=== PATIENT | female | born 1995 | race Caucasian/White ===

== ENCOUNTER 2023-10-02 09:11 | Emergency (ER) | payer BC, SELFPAY ==
[2023-10-02] VITALS (8 sets, daily range): BP systolic 122–167; BP diastolic 75–101; PULSE 67–85; RESP 12–18; TEMP 36.3–36.7; O2SAT 96–100; BMI 63.7
--- NOTE | 2023-10-02 09:21 | HMH.EDGENADL ---
Discharge Plan Disposition Patient Disposition: Home, Self-Care Condition: Good Prescriptions Prescriptions: New ondansetron 4 mg tablet,disintegrating 4 mg PO Q6H PRN (Reason: nausea and vomiting) 4 Days Qty: 16 0RF No Action dextroamphetamine-amphetamine 20 mg capsule,extended release 24hr 40 mg PO DAILY Wegovy 1.7 mg/0.75 mL pen injector 1.7 mg SQ WEEKLY Referrals Follow up/Referrals: Provider,Referral, [Primary Care Provider] - See instructions Clinical Impressions Clinical Impression: Abdominal pain, RLQ, Mesenteric adenitis Instructions Patient Instructions: DI for Acute Abdominal Pain Discharge ED Provider: Galo Harris General Adult HPI General Chief complaint: Abdominal Pain Stated complaint: Abd Pain Time Seen by Provider: 10/02/23 09:19 History of Present Illness HPI narrative: 27-year-old female with past medical history significant for PCOS and ADHD, presents today for evaluation concerning right lower quadrant abdominal pain which she states has been present since about 3 AM this morning. Pain has been constant since onset and radiates to the right upper quadrant. She reports nausea without emesis. Also reports constipation which is usual for her. She currently takes Wegovy and has been doing so for the past 4 months. Last menstrual period was about 2 months ago. She denies any chest pain, shortness of breath, fevers, chills, diarrhea or any other associated symptoms at this time. Related Data Home Medications Medication Instructions Recorded Confirmed dextroamphetamine-amphetamine ER 40 mg PO DAILY 10/02/23 10/02/23 20 mg 24hr capsule,extend release semaglutide (weight loss) 1.7 1.7 mg SQ WEEKLY 10/02/23 10/02/23 mg/0.75 mL subcutaneous pen injector (Wegovy) Previous Rx's Medication Instructions Recorded ondansetron 4 mg disintegrating 4 mg PO Q6H PRN nausea and 10/02/23 tablet vomiting 4 days #16 tabs Allergies Allergy/AdvReac Type Severity Reaction Status Date / Time No Known Allergies Allergy Verified 10/02/23 09:37 [facility] Disclaimer: The information contained in this section may have been updated after the patient was seen, as this information can be updated by other users. Social History Smoking Status: Never smoker alcohol intake: never current occupational status: employed Travel in the last 8 weeks: None ROS Obtained: Yes All systems reviewed & no additional complaints except as documented Physical Exam General General appearance: alert, in no apparent distress and obese Head Head exam: atraumatic and normocephalic Eye Eye exam: Present normal appearance, PERRL and EOMI ENT ENT exam: Present normal oropharynx and mucous membranes moist Neck Neck exam: Present full ROM; Absent meningismus Respiratory Respiratory exam: Absent respiratory distress, wheezes, stridor or accessory muscle use Cardiovascular Cardiovascular exam: Present normal rhythm Abdominal Exam Abdominal exam: Present soft and tenderness; Absent distention, guarding, rebound or rigidity Abdominal tenderness: Present RUQ and RLQ Neurological Exam Neurological exam: Present alert, oriented X3 and CN II-XII intact; Absent motor sensory deficit Psychiatric Psychiatric exam: Present normal affect and normal mood Skin Skin exam: Present warm and dry Medical Decision Making Medical Records Medical records reviewed: Yes I reviewed the patient's medical records. Drew Inquiry Pt receiving controlled substance: No Drew was queried for this patient: No Vital Signs: 10/02/23 09:33 10/02/23 09:35 10/02/23 10:04 Temperature 97.4 F L Temperature Source Oral Pulse Rate 75 85 Pulse Rate [Right Radial] 83 Respiratory Rate 17 15 12 Blood Pressure 167/99 H 127/78 Blood Pressure [Right Arm] 144/95 H Blood Pressure Mean [Right Arm] 111 Blood Pressure Source [Right Arm] Automatic Cuff Blood Pressure Position [Right Arm] Sitting 02 Sat by Pulse Oximetry 100 99 100 Oxygen Delivery Method Room Air Room Air Room Air 10/02/23 10:30 10/02/23 11:01 10/02/23 11:30 Temperature Temperature Source Pulse Rate 74 78 68 Pulse Rate [Right Radial] Respiratory Rate 18 16 15 Blood Pressure 128/91 H 122/75 128/77 Blood Pressure [Right Arm] Blood Pressure Mean [Right Arm] Blood Pressure Source [Right Arm] Blood Pressure Position [Right Arm] 02 Sat by Pulse Oximetry 98 97 96 Oxygen Delivery Method Room Air Room Air Room Air 10/02/23 12:01 Temperature Temperature Source Pulse Rate 67 Pulse Rate [Right Radial] Respiratory Rate 16 Blood Pressure 143/88 H Blood Pressure [Right Arm] Blood Pressure Mean [Right Arm] Blood Pressure Source [Right Arm] Blood Pressure Position [Right Arm] 02 Sat by Pulse Oximetry 97 Oxygen Delivery Method Room Air Lab Data Lab Results 10/02/23 09:14: Urine Color Yellow, Urine Appearance Clear, Urine pH 6.5, Ur Specific [place] 1.020, Urine Protein Negative, Urine Glucose (UA) Negative, Urine Ketones Negative, Urine Blood Negative, Urine Nitrate Negative, Urine Bilirubin Negative, Urine Urobilinogen 0.2, Ur Leukocyte Esterase Negative, Urine RBC Occasional, Urine WBC 3-5, Ur Squamous Epith Cells 5-10, Urine Bacteria 1+ 10/02/23 09:30: WBC 10.4, RBC 5.10, Hgb 13.8, Hct 43.3, MCV 84.8, MCH 27.1, MCHC 31.9, RDW 15.0, Plt Count 309, MPV 8.3, Neut % (Auto) 63.2, Lymph % (Auto) 25.8, [place] % (Auto) 4.0, Eos % (Auto) 6.1, Baso % (Auto) 0.9, Neut # (Auto) 6.6, Lymph # (Auto) 2.7, [place] # (Auto) 0.4, Eos # (Auto) 0.6 H, Baso # (Auto) 0.1, Sodium 140, Potassium 4.1, Chloride 105, Carbon Dioxide 30, Anion Gap 9.1, BUN 10, Creatinine 0.90, Estimated Creat Clear 86, Estimated GFR 74, Est GFR ( Amer) 90, Glucose 100, Calcium 9.1, Total Bilirubin 0.3, AST 34, ALT 36, Alkaline Phosphatase 88, Total Protein 8.5 H, Albumin 4.4, Globulin 4.1 H, Albumin/Globulin Ratio 1.1, Lipase 158, Serum HCG, Qual Negative 10/02/23 10:03: Lactate 0.8 10/02/23 09:30 10/02/23 09:30 Orders (Tests/Meds): ED MEDICATIONS Generic Name Dose Route Start Last Admin Trade Name Freq PRN Reason Stop Dose Admin Sodium Chloride 10 ml 10/02/23 10:20 10/02/23 10:21 Sodium Chloride 0.9% 10ml Syr (Rad Only) IV 11/01/23 10:19 10 ml NEEDED PRN Administration Maintain IV Site Discontinued Medications Generic Name Dose Route Start Last Admin Trade Name Freq PRN Reason Stop Dose Admin Iopamidol 75 ml 10/02/23 10:20 10/02/23 10:20 Iopamidol-370 (76%);100ml Bottle IV 10/02/23 10:21 75 ml ONCE ONE Administration Morphine Sulfate 4 mg 10/02/23 09:25 10/02/23 09:38 Morphine 4mg/Ml Syringe IV 10/02/23 09:26 4 mg ONCE ONE Administration Ondansetron HCl 4 mg 10/02/23 09:25 10/02/23 09:37 Ondansetron 4mg/2ml Vial IV 10/02/23 09:26 4 mg ONCE ONE Administration ORDERS Category Date Time Status CT abdomen pelvis w con Stat Cat Scan 10/02/23 09:25 Completed US transvaginal Stat Exams 10/02/23 09:28 Completed CBC w/Auto Diff [Complete Blood Count Auto Diff] Stat Lab 10/02/23 09:30 Completed CMP [Comprehensive Metabolic Panel] Stat Lab 10/02/23 09:30 Completed HCG Qualitative, Serum Stat Lab 10/02/23 09:30 Completed Lactic Acid Stat Lab 10/02/23 10:03 Completed Lipase Stat Lab 10/02/23 09:30 Completed UA [Urinalysis and Microscopic] Stat Lab 10/02/23 09:14 Completed Medical Decision Narrative: 27-year-old female with past medical history significant for PCOS and ADHD, presents today for evaluation concerning right lower quadrant abdominal pain which she states has been present since about 3 AM this morning. Pain has been constant since onset and radiates to the right upper quadrant. She reports nausea without emesis. Also reports constipation which is usual for her. She currently takes Wegovy and has been doing so for the past 4 months. Last menstrual period was about 2 months ago. On assessment she was hemodynamically stable and in no acute distress. Afebrile. Chest was clear to station bilaterally. Abdomen soft nondistended and was tender in the right lower quadrant. No rebound or guarding. Other physical exam findings unremarkable. Differential diagnoses include not limited to appendicitis, ovarian torsion, ruptured cyst, , constipation, among others. Patient's labs today have been nonactionable. No signs of UTI on urinalysis. Negative screen. Transvaginal ultrasound noted that both ovaries were difficult to visualize but appeared to be normal. Blood flow was noted to both ovaries and there was no fluid in the cul-de-sac. CT abdomen pelvis did show small right lower quadrant lymph nodes which could be seen in mesenteric adenitis. No other acute findings. On reassessment she remains medically stable and in no distress. Stated her pain was improved. Discussed ED workup and results as well as current plan to discharge with supportive care measures including NSAIDs over the next few days. She verbalized understanding and agreement with plan. Provided with return ED precautions and instructions concerning PCP follow-up. Subsequently discharged. Critical Care Critical Care Time Critical Care Time: No
--- NOTE | 2023-10-02 09:22 | PC.NURSE ---
dr chappell at bedside
--- NOTE | 2023-10-02 09:25 | CT_ITS ---
FINAL REPORT TECHNIQUE: Thin section axial images are obtained through the abdomen and pelvis after intravenous contrast. Reconstruction images were obtained from the axial data. Exam was performed using dose reduction techniques. CLINICAL HISTORY: RLQ pain COMPARISON: None FINDINGS: Exam quality is limited secondary to patient body habitus. LUNG BASES: Lung bases are clear. Heart size is normal. LIVER: Homogeneous. No focal lesion. GALLBLADDER/BILIARY SYSTEM: Gallbladder is present. No gallstones. No biliary dilatation. SPLEEN: Unremarkable. PANCREAS: Unremarkable. ADRENALS: Unremarkable. SYSTEM: No hydronephrosis, renal mass, or renal stone. Unremarkable urinary bladder. Uterus is unremarkable for age. GI TRACT: No small bowel obstruction or dilatation. Appendix not seen but no secondary signs of appendicitis. No acute colon abnormality. LYMPH NODES/RETROPERITONEUM/MESENTERY: Small right lower quadrant lymph nodes which could be seen which mesenteric adenitis. No abdominal aortic aneurysm. OTHER: No ascites. Remaining soft tissues without acute abnormality. BONES: No acute osseous abnormality. IMPRESSION: Small right lower quadrant lymph nodes which can be seen with mesenteric adenitis. Otherwise, no acute abnormalities. Reviewed, Interpreted and Dictated by Miya Rob MD Transcribed by Lidya Castanon Authenticated and [facility]
--- NOTE | 2023-10-02 09:28 | US_ITS ---
PROCEDURE: US TRANSVAGINAL CLINICAL INDICATION: RLQ pain, hx PCOS COMPARISON: No exams were available for comparison FINDINGS: Transvaginal sonographic images of the pelvis were obtained. UTERUS: 8.1cm x 4.5 cmx 3.7 cm anteverted with a combined endometrial thickness of 7.2mm. There is a small amount of fluid in the cervical canal. LEFT OVARY: 1.7 cmx1.3cmx1.3cm with a volume of 1.5ml. RIGHT OVARY: 2.5cmx 2.4cmx1.9 cm with a volume of 5.7ml. Both ovaries are seen and appear normal. They are difficult to visualize. Doppler flow to both ovaries are seen. There is no fluid in the cul-de-sac. IMPRESSION: 1. Anteverted uterus normal in shape and size. The endometrium appears normal and measures 7.2 mm. 2. Both ovaries are difficult to visualize but appear normal. There is blood flow to both ovaries. 3. No fluid in the cul-de-sac. Dictated by: Julio Campos MD 10/02/2023 10:39 Julio Campos MD in [place] 10/02/2023 10:39
[2023-10-02 09:30] LABS: Microscopic, Urine URINE MICROSCOPIC (MICROSCOPIC)
--- NOTE | 2023-10-02 09:30 | PC.NURSE ---
US called for transvag
[2023-10-02 09:37] LABS: Appearance,Urine CLEAR (Clear); Bilirubin,Urine Negative (Negative); Blood, Urine Negative (Negative); Color,Urine YELLOW (Yellow); Glucose,Urine (UA) Negative (Negative); Ketones,Urine Negative (Negative); Leukocyte Esterase,Urine Negative (Negative); Nitrate,Urine Negative (Negative); PH,Urine 6.5 (5.0-8.5); Protein,Urine Negative (Negative); Urobilinogen,Urine 0.2 EU/dl (0.2)
[2023-10-02] MEDS: ONDANSETRON 4MG/2ML VIAL 4 MG IV (09:37)
[2023-10-02] MEDS: MORPHINE 4MG/ML SYRINGE 4 MG IV (09:38)
--- NOTE | 2023-10-02 09:40 | PC.NURSE ---
pt to us
[2023-10-02 09:42] LABS: Basophils # 0.1 K/mm3 (0-0.2); Basophils % 0.9 % (0.1-2.0); Eosinophils # 0.6 K/mm3 (0.0-0.4); Eosinophils % 6.1 % (0.1-12.0); Hematocrit 43.3 % (37.0-47.0); Hemoglobin 13.8 g/dL (12.2-16.2); Lymphocytes # 2.7 K/mm3 (0.7-4.5); Lymphocytes % 25.8 % (10-50); Mean Corpuscular HGB Conc 31.9 g/dL (31.8-35.4); Mean Corpuscular Hemoglobin 27.1 pg (27.0-31.2); Mean Corpuscular Volume 84.8 fl (81-99); Mean Platelet Volume 8.3 fl (7.4-10.4); Monocytes # 0.4 K/mm3 (0.1-1.0); Neutrophils # 6.6 K/mm3 (1.8-7.8); Neutrophils % 63.2 % (37.0-80.0); Platelet Count 309 K/mm3 (142-424); White Blood Count 10.4 K/mm3 (4.8-10.8)
[2023-10-02 09:48] LABS: Bacteria,Urine 1+ /lpf; RBC,Urine Occasional #/hpf (0-3)
[2023-10-02 09:50] LABS: Chloride 105 mmol/L (98-107); Potassium 4.1 mmoL/L (3.5-5.1); Sodium 140 mmol/L (136-145)
[2023-10-02 09:52] LABS: Alanine Aminotransferase 36 U/L (12-78); Blood Urea Nitrogen 10 mg/dl (7-17); Creatinine Clearance Estimated 86 mL/min (50-200); Estimated Glomerular Filt Rate 74 ml/min (>60); GFR (African American) 90 ML/MIN (>60)
[2023-10-02 09:53] LABS: Albumin Level 4.4 g/dl (3.5-5.0); Albumin/Globulin Ratio 1.1 (1.1-1.8); Alkaline Phosphatase 88 U/L (38-126); Anion Gap 9.1 mEq/L (5-15); Aspartate Amino Transferase 34 U/L (14-36); Bilirubin,Total 0.3 mg/dl (0.2-1.3); Calcium 9.1 mg/dl (8.4-10.2); Carbon Dioxide 30 mmol/L (22.0-30.0); Globulin 4.1 g/dL (1.3-3.2); Glucose 100 mg/dl (74-100); Lipase 158 U/L (23-300); Total Protein,Serum 8.5 g/dl (6.3-8.2)
[2023-10-02 10:08] LABS: HCG Qualitative, Serum Negative (Negative)
[2023-10-02] MEDS: IOPAMIDOL-370 (76%);100ML BOTTLE 75 ML IV (10:20)
[2023-10-02] MEDS: SODIUM CHLORIDE 0.9% 10ML SYR (RAD ONLY) 10 ML IV (10:21)
[2023-10-02 10:22] LABS: Lactic Acid 0.8 mmol/L (0.7-2.1)
--- NOTE | 2023-10-02 12:20 | PC.NURSE ---
dr chappell at bedside to update pt
== END 2023-10-02 12:57 | disposition home or self-care (01) ==
PROVIDERS: Emergency Provider Emergency Medicine
DX: R10.31 Right lower quadrant pain (principal); I88.0 Nonspecific mesenteric lymphadenitis; R11.0 Nausea
CPT/HCPCS: 74177; 76830; 80053; 81001; 83605; 83690; 84703; 85025; 96374; 96375; 99285; J2270; J2405; Q9967

== ENCOUNTER 2025-02-22 08:21 | Emergency (ER) | payer BC, SELFPAY ==
--- OUTSIDE RECORDS SUMMARY | 2025-02-05 09:09 | XMS_ITS | Encounter Summary ---
Author Organization [facility] yste Address [address] [place] [address] Care Team Providers Care Textile Examiner Name Role Phone Chelsea Bruno GREY Primary Care Provider [phone] Reason for Visit * Reason Comments Cough Sx started week ago. Sx include cough, SOB, cough causing vomiting. Encounter Details Date Type Department Care Team (Late st Contact Info) Description 02/05/2025 9:09 AM EST - 02/05/2025 10:11 AM [facility] Hospital Encounter [facility] [address] [facility] [address] [place] [address] Mariya Gay APRN [address] [facility] [address] [place] [address] Acute cough (Primary Dx); Upper respiratory tract infection, unspecified type Discharge Disposition: Home or Self Care Social History Tobacco Use Types Packs/Day Years Used Date Smoking Tobacco: Former Cigarettes 1 1.1 0 06/18/2018 - 07/19/2019 Passive Smoke Exposure: Never Smokeless Tobacco: Never Tobacco Cessation:Counseling Given: Not Answered Alcohol Use Standard Drinks/Week Comments Not Currently 0 (1 standard drink = 0.6 oz pur e alcohol) PHQ-2 Answer Date Recorded Patient Health Questionnaire-2 Score 0 05/17/2024 Comments No Sex and Gender Information Value Date Recorded Sex Assigned at Female 11/06/2021 7:48 AM EDT Legal Sex Female 10:43 AM EDT Gender Identity Female 11/06/2021 7:48 AM EDT Sexual Orientation Not on file documented as of this encounter Last Filed Vital Signs Vital Sign Reading Time Taken Comments Blood Pressure 136/83 02/05/2025 9:21 AM EST Pulse 83 02/05/2025 9:21 AM EST Temperature 36.4 C (97.6 F) 02/05/2025 9:21 AM EST Respiratory Rate 20 02/05/2025 9:21 AM EST Oxygen Saturation 98% 02/05/2025 9:21 AM EST Inhaled Oxygen Concentration - - Weight 177 kg (390 lb) 02/05/2025 9:21 AM EST Height 167.6 cm (5' 6 ) 02/05/2025 9:21 AM EST Body Mass Index 62.95 02/05/2025 9:21 AM EST documented in this encounter Discharge Instructions * Discharge Instructions* Mariya Gay APRN - 02/05/2025 10:08 AM EST Covid, flu are negative in office today. Symptom management for URI. Rest, fluids, OTC cough and cold medications, tylenol per package instructions. Bromfed prescribed for cough and congestion. Follow up with PCP if no improvement. * Attachments The following attachments cannot be sent through Care Everywhere. * Cough Adult (Malaysian) * Infection in the Nose Throat and Airways (Upper Respiratory Infection) in Adults: What to Know (Malaysian) documented in this encounter Medications at Time of Discharge albuterol sulfate HFA 108 (90 Base) MCG/ACT inhalerIndications: Upper respiratory tract infection, unspecified type Inhale 2 puffs Every 4 (Four) Hours As Needed for Shortness of Air or Wheezing. 18 g brompheniramine-pse udoephedrine-DM 30-2-10 MG/5ML syrupIndications:Ac buckland cough,Upper respiratory tract infection, unspecified type Take 5 mL by mouth 4 (Four) Times a Day As Needed for Congestion, Cough or Allergies. 118 mL 5 cetirizine (zyrTEC) 10 MG tablet Take 1 tablet by mouth Daily. enoxaparin sodium (Lovenox) 30 MG/0.3ML solution prefilled syringe syringe Inject 0.3 mL (one syringe) under the skin into the appropriate area as directed 2 (Two) Times a Day. 18 mL 3 02/07/2025 2:18 PM EST 5 estradiol (Estrace) 2 MG tablet Take 1 tablet by mouth 2 times daily AND insert 1 tablet vaginally once daily. 90 tablet 3 02/07/2025 2:18 PM EST 5 famotidine (Pepcid) 20 MG tabletIndications:G astroesophageal reflux disease without esophagitis Take 1 tablet by mouth 2 (Two) Times a Day. 60 tablet 01/06/2025 4:31 PM EDT 5 metFORMIN ER (GLUCOPHAGE-XR) 500 MG 24 hr tablet Take 2 tablets by mouth 2 (Two) Times a Day. 120 tablet 3 01/06/2025 4:31 PM EDT 5 metFORMIN ER (GLUCOPHAGE-XR) 500 MG 24 hr tablet Take 1 tablet by mouth Daily with a meal for 7 days, THEN increase to 2 tablets Daily with a meal thereafter 60 tablet 1 5 04/10/19 26 Needle, Disp, (BD Disp [place]) 18G X 1-1/2 misc Use 1 Needle with Progesterone in Oil as directed Daily. 30 each 2 02/07/2025 2:18 PM EST 5 Omegaven 10 GM/100ML emulsion Infuse 10 grams intravenously per protocol 5 Progesterone (Prometrium) 200 MG capsule Insert 1 capsule into the vagina 2 (Two) Times a Day DIRECTED. 60 capsule 3 02/07/2025 2:18 PM EST 5 progesterone oil 50 MG/ML injection Inject 1 mL into the appropriate muscle as directed by prescriber Daily DIRECTED. 30 mL 3 02/07/2025 2:18 PM EST 5 Syringe/Needle, Disp, (B-D 3CC LUER-BLANCA SYR 49IT7-9/2) 23G X 1-1/2 3 ML misc Use to inject Progesterone in Oil as directed Daily. 30 each 2 02/07/2025 2:18 PM EST 5 tacrolimus (Prograf) 1 MG capsule Take one (1) capsule by mouth three times daily as directed by provider for infertility 30 capsule 1 12/02/2024 12:04 PM EDT 5 triamcinolone (KENALOG) 0.1 % creamIndications:Ec zema, unspecified type Apply 1 Application topically to the appropriate area as directed 2 (Two) Times a Day. 45 g 1 11/12/2024 8:09 AM EDT 5 predniSONE (DELTASONE) 20 MG tabletIndications:U pper respiratory tract infection, unspecified type Take 1 tablet by mouth Daily for 5 days. 5 tablet 5 02/11/20 25 busPIRone (BUSPAR) 10 MG tablet Take 1 tablet by mouth 2 (Two) Times a Day for Anxiety 60 tablet 2 01/06/2025 4:31 PM EDT 5 02/13/20 25 Needle, Disp, (BD PrecisionGlide Needle) 23G X 1-1/2 misc For daily use with Progesterone in Oil 30 each 3 10/09/2024 11:29 AM EDT 5 02/08/20 25 Syringe/Needle, Disp, (B-D 3CC LUER-BLANCA SYR 16BT1-8/2) 18G X 1-1/2 3 ML misc For Daily Use with Progesterone in Oil 30 each 3 10/09/2024 11:29 AM EDT 5 02/08/20 25 documented as of this encounter ED Notes * Mariya Gay, GREY - 02/05/2025 9:59 AM EST Subjective Chief Complaint Patient presents with Cough Sx started week ago. Sx include cough, SOB, cough causing vomiting. Cough Associated symptoms: rhinorrhea and sore throat (r/t drainage) Associated symptoms: no chills, no ear pain, no fever, no headaches, no shortness of breath and no wheezing Milagro Nash is a 29 y.o. female who presents for cough, shortness of breath. States she has been coughing so much she threw up. Review of Systems Constitutional: Negative for chills and fever. HENT: Positive for congestion, postnasal drip, rhinorrhea and sore throat (r/t drainage). Negative for ear pain and sinus pressure. Respiratory: Positive for cough. Negative for shortness of breath and wheezing. Gastrointestinal: Positive for vomiting (from coughing episodes per patient). Neurological: Negative for headaches. Past Medical History: Diagnosis Date ADHD (attention deficit hyperactivity disorder) 2019 Allergic Anemia Anxiety Bilateral CTS (carpal tunnel syndrome) 2020 Depression TAM (dyspnea on exertion) Fractured left foot - air cast only 2007 Heartburn episodic. PRN tums; No hx of EGD or h pylori GIFTY (iron deficiency anemia) Knee pain following meniscus repair; no meds Migraine without status migrainosus, not intractable 2012 Obesity Palpitations PCOS (polycystic ovarian syndrome) Prediabetes Allergies Allergen Reactions Molds & Smuts Other (See Comments) Shellfish Protein-Containing Drug Products Other (See Comments) positive on allergy testing Past Surgical History: Procedure Laterality Date EAR TUBES 1998 KNEE MENISCECTOMY Left 2020 TYMPANOPLASTY Left 2013 Family History Problem Relation Name Age of Onset Diabetes Mother Mariya Depression Mother Mariya Miscarriages / Stillbirths Mother Mariya Stroke Mother Mariya Heart attack Father Marc Heart disease Father Marc Hypertension Father Marc Alcohol abuse Father Marc Depression Father Marc Vision loss Father Marc Liver disease Father Marc Stroke Maternal Grandmother Sary Cancer Maternal Grandfather Blair Social History Socioeconomic History Marital status: Tobacco Use Smoking status: Former Current packs/day: 0.00 Average packs/day: 1 pack/day for 1.1 years (1.1 ttl pk-yrs) Types: Cigarettes Start date: 06/18/2018 Quit date: 07/19/2019 Years since quittin.5 Passive exposure: Never Smokeless tobacco: Never Vaping Use Vaping status: Former Substance and Sexual Activity Alcohol use: Not Currently Drug use: Never Sexual activity: Yes Partners: Male Objective BP 136/83 (BP Location: Right arm, Patient Position: Sitting) Pulse 83 Temp 97.6 ??F (36.4 ??C)(Temporal) Resp 20 Ht 167.6 cm (66 ) Wt (!) 177 kg (390 lb) SpO2 98% BMI 62.95 kg/m?? Physical Exam Vitals reviewed. Constitutional: General: She is not in acute distress. Appearance: Normal appearance. She is not ill-appearing, toxic-appearing or diaphoretic. HENT: Head: Normocephalic and atraumatic. Mouth/Throat: Pharynx: No oropharyngeal exudate or posterior oropharyngeal erythema. Cardiovascular: Rate and Rhythm: Normal rate and regular rhythm. Pulmonary: Effort: Pulmonary effort is normal. No respiratory distress. Breath sounds: Normal breath sounds. Neurological: Mental Status: She is alert and oriented to person, place, and time. Psychiatric: Mood and Affect: Mood normal. Thought Content: Thought content normal. Procedures ED Course ED Course as of 02/05/25 1011 MonFeb 05, 2025 0957 Covid-19 + Flu A&B AG, Veritor [MS] 0957 COVID19: Not Detected [MS] 0957 Influenza A Antigen KENNEDI: Not Detected [MS] 0957 Influenza B Antigen KENNEDI: Not Detected [MS] ED Course User Index [MS] Mariya Gay APRN @[facility]@ @[facility]@ Labs Reviewed COVID-19 + FLU A&B AG, VERITOR - Normal Imaging Results: No orders to display Diagnoses and all orders for this visit: 1. Acute cough (Primary) - xifbqjofwptrsdk-uklkqoefvptussn-AS 30-2-10 MG/5ML syrup; Take 5 mL by mouth 4 (Four) Times a Day As Needed for Congestion, Cough or Allergies. Dispense: 118 mL; Refill: 0 2. Upper respiratory tract infection, unspecified type - lrkvrpxdckluwec-lreytwfrlsfpkms-DZ 30-2-10 MG/5ML syrup; Take 5 mL by mouth 4 (Four) Times a Day As Needed for Congestion, Cough or Allergies. Dispense: 118 mL; Refill: 0 - predniSONE (DELTASONE) 20 MG tablet; Take 1 tablet by mouth Daily for 5 days. Dispense: 5 tablet;Refill: 0 - albuterol sulfate HFA 108 (90 Base) MCG/ACT inhaler; Inhale 2 puffs Every 4 (Four) Hours As Needed for Shortness of Air or Wheezing. Dispense: 18 g; Refill: 0 Other orders - Covid-19 + Flu A&B AG, Veritor; Standing - Covid-19 + Flu A&B AG, Veritor TOBACCO USE: Milagro Nash reports that she quit smoking about 5 years ago. Her smoking use included cigarettes. She started smoking about 6 years ago. She has a 1.1 pack- year smoking history. She has never been exposed to tobacco smoke. She has never used smokeless tobacco. Current tobacco users are offered counseling on tobacco cessation and encouraged to discuss options with their primary care provider. Medical Decision Making Covid, flu are negative in office today. Symptom management for URI. Rest, fluids, OTC cough and cold medications, tylenol per package instructions. Bromfed prescribed for cough and congestion. Recommend daily 24H antihistamine along with Flonase nasal spray to reduce drainage and help with symptoms. Follow up with PCP if no improvement. Prednisone and albuterol for shortness of breath and URI symptoms. Problems Addressed: Acute cough: complicated acute illness or injury Upper respiratory tract infection, unspecified type: complicated acute illness or injury Amount and/or Complexity of Data Reviewed Labs: ordered. Decision-making details documented in ED Course. Risk Prescription drug management. No follow-ups on file. Final diagnoses: Acute cough Upper respiratory tract infection, unspecified type Mariya Gay APRN 02/05/25 Mariya Gay APRN 02/05/25 1008 Mariya Gay APRN 02/05/25 1011 documented in this encounter Plan of Treatment Upcoming Encounters Date Type Department Care Team (Late st Contact Info) Description 03/07/2025 8:15 AM EST Office Visit [facility] [address] [phone] Chelsea Bruno, WEATHERIZATION INSTALLER [address] [address] documented as of this encounter Goals Goal Patient Goal Type Associated Problems Recent Progress Patient-Stated? Author Specialty Pharmacy General Goal General On track(04/04/19 10:35 AM EST) No Leighton Oshea RPH Note: Reduce severity and duration of acute migraine headache by 50% Specialty Pharmacy General Goal General On track(12/03/19 11:29 AM EDT) No Rola Crawford [facility] Note: Positive outcome during IVF cycle. documented as of this encounter Procedures Procedure Name Priority Date/Time Associated Diagnosis Comments COVID-19 + FLU A&B AG, VERITOR STAT 02/05/2025 9:41 AM EST documented in this encounter Results * Covid-19 + Flu A&B AG, Veritor (02/05/2025 9:41 AM EST) COVID19 Not Detected Not Detected - Ref. Range Influenza A Antigen KENNEDI Not Detected Not Detected Influenza B Antigen KENNEDI Not Detected Not Detected Internal Control Passed Passed Lot Number [id number] Expiration Date 05/29/2025 Swab 02/05/2025 9:41 AM EST [facility] POINT OF CARE TEST ORDERA BLES Final Result documented in this encounter Visit Diagnoses Diagnosis Acute cough- Primary Upper respiratory tract infection, unspecified type documented in this encounter Additional Health Concerns Infection Onset Date Last Indicated Resolved Time COVID (rule out) 02/05/2025 02/05/2025 02/05/2025 9:41 AM EST documented as of this encounter Care Teams Textile Examiner Relationship Specialty Start Date End Date Chelsea Bruno APRN [address] [place] [id number] PCP - General Nurse Practitioner 10/18/23 documented as of this encounter
[2025-02-22] VITALS (10 sets, daily range): BP systolic 114–147; BP diastolic 54–92; PULSE 74–110; RESP 16–18; TEMP 36.9–37.1; O2SAT 96–100; BMI 62.9
--- OUTSIDE RECORDS SUMMARY | 2025-02-22 08:29 | XMS_ITS | Encounter Summary ---
[facility] Address [address] [place] [address] Care Team Providers Care Stunner Animal Name Role Phone Chelsea Bruno APRN Primary Care Provider [phone] Encounter Details Date Type Department Care Team (Latest Contact Info) Description 02/05/2025 Travel Social History Tobacco Use Types Packs/Day Years Used Date Smoking Tobacco: Former Cigarettes 1 1.1 0 06/18/2018 - 07/19/2019 Passive Smoke Exposure: Never Smokeless Tobacco: Never Alcohol Use Standard Drinks/Week Comments Not Currently [...] on file documented as of this encounter Plan of Treatment Upcoming Encounters Date Type Department Care Team (Late st Contact Info) Description 03/07/2025 8:15 AM EST Office Visit [facility] [address] [place] [address] Chelsea Bruno APRN [address] [facility] [place] [address] documented as of this encounter Goals Goal Patient Goal Type Associated Problems Recent Progress Patient-Stated? Author Specialty Pharmacy General Goal General On track(04/04/19 10:35 AM EST) No Leighton Oshea RPH Note: Reduce severity and duration of acute migraine headache by 50% Specialty Pharmacy General Goal General On track(12/03/19 11:29 AM EDT) No Rola Crawford RPH Note: Positive outcome during IVF cycle. documented as of this encounter Visit Diagnoses Not on filedocumented in this encounter Additional Health Concerns Infection Onset Date Last Indicated Resolved Time COVID (rule out) 02/05/2025 02/05/2025 02/05/2025 9:41 AM EST documented as of this encounter Care Teams Stunner Animal Relationship Specialty Start Date End Date Chelsea Bruno APRN [address] [place] [address] PCP - General Nurse Practitioner 10/18/23 documented as of this encounter
--- OUTSIDE RECORDS SUMMARY | 2025-02-22 08:29 | XMS_ITS | Clinical Summary ---
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 cetirizine (ZyrTEC) 10 MG tablet Take 2 tablets (20 mg) by mouth. Active famotidine (Pepcid) 20 MG tablet Take 1 tablet (20 mg) by mouth 2 (two) times a day. 4 Active ubrogepant (Ubrelvy) 100 MG tablet Take 1 tablet (100 mg) by mouth. 4 Active semaglutide (Ozempic) 2 MG/1.5ML solution pen-injector inj. pen Active metFORMIN XR (Glucophage-XR) 500 MG 24 hr tabletIndicatio ns:History of PCOS Take 3 tablets by mouth 1 (one) time each day with dinner. Do not crush, chew, or split. 270 tablet 3 5 07/10/19 26 Active ASPIRIN 81 PO Active busPIRone (Buspar) 10 MG tablet Take 1 tablet by mouth twice a day. 5 Active doxycycline (Vibramycin) 100 MG capsule Take 1 capsule by mouth twice a day. 5 Active enoxaparin (Lovenox) 30 MG/0.3ML solution prefilled syringe Inject 0.3 mL under the skin 1 time each day. 5 Active estradiol (Estrace) 2 MG tablet Take 1 tablet by mouth twice a day. 5 Active levothyroxine (Synthroid, Levoxyl) 50 MCG tablet Take 1 tablet by mouth. 5 Active medroxyPROGESTE Haim (Provera) 10 MG tablet Take 1 tablet by mouth daily. as directed 5 Active Naltrexone HCl, Pain, 4.5 MG capsule Active predniSONE (Deltasone) 5 MG tablet Take 1 tablet by mouth twice a day. 5 Active progesterone (Prometrium) 200 MG capsule Insert 1 capsule into the vagina twice a day. 5 Active progesterone 50 MG/ML injection Inject 1 mL into the muscle 1 time each day. 5 Active tacrolimus 1 MG PO capsule Take 1 capsule by mouth 3 times a day. 5 Active triamcinolone (Kenalog) 0.1 % cream Apply 1 Application topically twice a day. 5 Active Active Problems Problem Noted Date Diagnosed Date Right hand pain 04/07/2021 Pre-operative anxiety 11/19/2020 Morbid obesity 11/19/2020 Acute lateral meniscus tear of left knee 021 Overview (11/18/2020): Added automatically from request for surgery Anovulatory (dysfunctional uterine) bleeding Morbid obesity with BMI of 60.0-69.9, adult 09/17 Allergic rhinitis 10/26/2012 Asthma 10/26/2012 Depression with anxiety 10/26/2012 Migraine without status migrainosus, not intract able 10/26/2012 Polycystic ovarian syndrome 10/26/2012 Immunizations Immunization Administration Dates Next Due DTaP 11/14/1997, 6,05/10/1994,02/24,01/03/1994 Hep B, adult 02/25/1996,08/03/1994,01/03/1994 Hib (PRP-OMP) 06/22/1995, 5,02/24/1994,01/03 IPV 11/14/1997, 6,02/24/1994,01/03 Influenza, Unspecified 01/27/2019,2017,06/07/2017,12/09,02/22/2008,02/28/2007 MMR 11/14/1997,02/22/1995 Meningococcal MCV4P 12/09/2008 PPD Skin Test (TB Skin Test) 04/02/2013 TD (adult), 2 Lf tetanus tox oid, preservative free, adsorbed 10/15/2004 Tdap 06/07/2017,12/09/2008 Varicella 12/09/2008,11/14/1997 Family History Medical History Relation Name Comments Alcohol abuse Father Marc CABG Father Marc Heart attack Father Marc Heart disease Father Marc Hypertension Father Marc Vision loss Father Marc No Known Problems Father's Brother 1 Ulcers Father's Brother 2 Cancer Maternal Grandfather Blair Lung Brain Aneurysm Maternal Grandmother Anesthesia problems Mother Mariya Brain Aneurysm Mother Mariya Depression Mother Mariya Diabetes Mother Mariya Diabetes type II Mother Mariya Endometriosis Mother Mariya Hypertension Mother Mariya Migraines Mother Mariya Stroke Mother Mariya Drug abuse Mother's Brother No Known Problems Mother's Sister 1 Brain Aneurysm Mother's Sister 2 Heart attack Paternal Grandfather Heart attack Paternal Grandmother Relation Name Status Comments Father Marc Alive Father's Brother 1 Alive Father's Brother 2 Maternal Grandfather Blair Alive Maternal Grandmother Mother Mariya Alive Mother's Brother Alive Mother's Sister 1 Alive Mother's Sister 2 Paternal Grandfather Paternal Grandmother Social History Tobacco Use Types Packs/Day Years Used Date Smoking Tobacco: Former Cigarettes 1.5 1.2 0 07/02/2017 - 10/01/2018 Passive Smoke Exposure: Past Smokeless Tobacco: Never Alcohol Use Standard Drinks/Week Comments Not Currently 0 (1 standard drink = 0.6 oz pur e alcohol) PHQ-2 Answer Date Recorded Patient Health Questionnaire-2 Score 0 11/13/2024 PHQ-9 Answer Date Recorded Patient Health Questionnaire-9 Score 0 11/13/2024 Comments No Sex and Gender Information Value Date Recorded Sex Assigned at Female 05/14/2021 6:24 PM EST Legal Sex Female 8:10 PM EDT Gender Identity Female 05/14/2021 6:24 PM EST Sexual Orientation Not on file Last Filed Vital Signs Vital Sign Reading Time Taken Comments Blood Pressure 126/84 11/13/2024 9:00 AM EDT Pulse 74 11/13/2024 9:00 AM EDT Temperature 36.7 C (98 F) 05/16/2024 8:56 AM EST Respiratory Rate 18 11/13/2024 9:00 AM EDT Oxygen Saturation 98% 11/13/2024 9:00 AM EDT Inhaled Oxygen Concentration - - Weight 178 kg (393 lb 1.3 oz) 11/13/2024 9:00 AM EDT Height 167.6 cm (5' 6 ) 11/13/2024 9:00 AM EDT Body Mass Index 63.44 11/13/2024 9:00 AM EDT Plan of Treatment Health Maintenance Due Date Last Done Comments [facility]-Hepatitis C Screening 1993 [facility]-Infant/Child/Adol SDOH Screenings 1993 [facility]- SDOH Screenings 11/08/2011 [facility]-Adult SDOH Screenings 11/08/2011 [facility]-Pneumococcal Vaccine: Pediatrics (0 to 5 Years) and At-Risk Patients (6 to 49 Years) (1 of 2 - PCV) 2012 [facility]-Zoster Vaccines (1 of 2) 2012 12/09/2008, 11/14/1997 HPV Vaccines (1 - Risk 3-dose SCDM series) 2020 [facility]-HPV/Cotest 11/08/2023 [id number] Vaccine ( season) 2024 01/26/2021, 05/01/2020, 04/03/2020 [facility]-Influenza Vaccine (#1) 11/18/202401/11, 01/27/2019, 01/01/2018, Additional history exists [facility]-Cervical Cancer Screening 10/03/2025 [facility]-Pap Smear 10/03/2025 10/03/2022 [facility]-Depression Screening 11/13/2025 11/13/2024, 0809/2024 [facility]-Diabetes: Hemoglobin A1C 11/13/2025 11/13/2024, 10/18/2023, 10/25/2022, Additional history exists [facility]-DTaP,Tdap,and Td Vaccines (8 - Td or Tdap) 06/08/2027 06/07/2017, 12/09/2008, 10/15/2004, Additional history exists [facility]-HIB Vaccines Completed 06/22/1995, , 02/24/1994, Additional history exists [facility]-Hepatitis B Vaccines Completed 996, 08/03/1994, 01/03/1994 [facility]-IPV Vaccines Completed 11/14/1997, 06/1995, 02/24/1994, Additional history exists [facility]-Varicella Vaccines Completed 12/09/2008, 1997 [facility]-HIV Screening Completed 09/28/2018 [facility]-Obesity Intervention Completed 025, 06/18/2024, 06/07/2024, Additional history exists [facility]-Hepatitis A Vaccines Aged Out No longer eligible based on patient's age to complete this topic [facility]-Rotavirus Vaccines Aged Out No lo nger eligible based on patient's age to complete this topic Procedures Procedure Name Priority Date/Time Associated Diagnosis Comments HEMOGLOBIN A1C Routine 11/13/2024 9:50 AM EDT PCOS (polycystic ovarian syndrome) HIV 1/2 ANTIBODY/ANTIGEN SCREEN WITH REFLEX TO HIV I/II DIFFERENTIATION Routine 09/28/2018 2:51 PM EDT from Last 3 Months or Most Recently Relevant to Health Maintenance Results * (ABNORMAL) Hemoglobin A1c (11/13/2024 9:50 AM EDT) Hemoglobin A1c 5.7(H) <5.7 % 11/13/2024 3:01 PM EDT [facility] Blood Venous blood specimen / Unknown Venipuncture / Unknown 11/13/2024 9:50 AM EDT 11/13/2024 9:50 AM EDT Narrative [facility] - 11/13/2024 3:01 PM EDT HA1C Interpretive Data: Diagnosis of Diabetes: Diabetic > or = 6.5% Pre-diabetic 5.7 to 6.4% Non-diabetic < or = 5.6% Glycemic Targets for Type I and Type II Diabetics: Non- Adults <7.0% Adults <6.0% Children and Adolescents <7.5% Source: [place] [employer]. Standards of medical care in diabetes,2017. Diabetes Care.2017:40 (suppl 1):S1-S135. us Jono Montesinos MD LAB BLOOD ORDERABLES Chiqui l Result [facility] [address] [place] [address] * HIV 1 & 2 Antibody/Antigen Screen (09/28/2018 2:51 PM EDT) Pathologist [facility] [place] HIV 1 Result NONREACTIVE Screening for HIV 1 and 2 antibodies is NONREACTIVE. No confirmatory testing is required. [facility] 09/28/2018 2:51 PM EDT 09/28/2018 3:56 PM EDT Vaishnavi Leung MD LAB BLOOD ORDERABLES Final Result [facility] from Last 3 Months or Most Recently Relevant to Health Maintenance Insurance [facility] [place] [id number] [facility] Care Teams Slate Roofer Relationship Specialty Start Date End Date Chelsea Bruno APRN [address] [place], [place] [id number] PCP - General 11/13/24
--- OUTSIDE RECORDS SUMMARY | 2025-02-22 08:29 | XMS_ITS | Clinical Summary ---
Author Organization [facility] Address [address] [place] [address] Care Team Providers Care Learning And Development Administrator Name Role Phone KianaChelsea Rachel EDMONDS Primary Care Provider Allergies Active Allergy Reactions Criticality Noted Date Comments Molds & Smuts Other (See Comments) 09/18/2019 Shellfish Protein-Containing Drug Products Other (See Comments) 03/05/2019 positive on allergy testing Medications * This document contains information received from the source organization and may not represent a complete record from that organization. cetirizine (zyrTEC) 10 MG tablet Take 1 tablet by mouth Daily. Active triamcinolone (KENALOG) 0.1 % creamIndications: Eczema, unspecified type Apply 1 Application topically to the appropriate area as directed 2 (Two) Times a Day. 45 g 1 5 8:09 AM EDT 025 Active progesterone oil 50 MG/ML injection Inject 1 mL into the appropriate muscle as directed by prescriber Daily DIRECTED. 30 mL 3 5 2:18 PM EST 025 Active Progesterone (Prometrium) 200 MG capsule Insert 1 capsule into the vagina 2 (Two) Times a Day DIRECTED. 60 capsule 3 5 2:18 PM EST 025 Active tacrolimus (Prograf) 1 MG capsule Take one (1) capsule by mouth three times daily as directed by provider for infertility 30 capsule 1 09/15/202 5 12:04 PM EDT 025 Active estradiol (Estrace) 2 MG tablet Take 1 tablet by mouth 2 times daily AND insert 1 tablet vaginally once daily. 90 tablet 3 5 2:18 PM EST 025 Active metFORMIN ER (GLUCOPHAGE-XR) 500 MG 24 hr tablet Take 2 tablets by mouth 2 (Two) Times a Day. 120 tablet 3 5 4:31 PM EDT 025 Active enoxaparin sodium (Lovenox) 30 MG/0.3ML solution prefilled syringe syringe Inject 0.3 mL (one syringe) under the skin into the appropriate area as directed 2 (Two) Times a Day. 18 mL 3 5 2:18 PM EST 025 Active famotidine (Pepcid) 20 MG tabletIndications :Gastroesophageal reflux disease without esophagitis Take 1 tablet by mouth 2 (Two) Times a Day. 60 tablet 5 4:31 PM EDT 025 Active Omegaven 10 GM/100ML emulsion Infuse 10 grams intravenously per protocol 025 Active brompheniramine-p seudoephedrine-DM 30-2-10 MG/5ML syrupIndications: Acute cough,Upper respiratory tract infection, unspecified type Take 5 mL by mouth 4 (Four) Times a Day As Needed for Congestion, Cough or Allergies. 118 mL 025 Active albuterol sulfate HFA 108 (90 Base) MCG/ACT inhalerIndication s:Upper respiratory tract infection, unspecified type Inhale 2 puffs Every 4 (Four) Hours As Needed for Shortness of Air or Wheezing. 18 g 025 Active metFORMIN ER (GLUCOPHAGE-XR) 500 MG 24 hr tablet Take 1 tablet by mouth Daily with a meal for 7 days, THEN increase to 2 tablets Daily with a meal thereafter 60 tablet 1 025 2025 Active Needle, Disp, (BD Disp Phoenix) 18G X 1-03/21 misc Use 1 Needle with Progesterone in Oil as directed Daily. 30 each 2 5 2:18 PM EST 025 Active Syringe/Needle, Disp, (B-D 3CC LUER-BLANCA SYR 68PT0-7/2) 23G X 1-1/2 3 ML misc Use to inject Progesterone in Oil as directed Daily. 30 each 2 5 2:18 PM EST 025 Active busPIRone (BUSPAR) 10 MG tablet Take 1 tablet by mouth 2 (Two) Times a Day for anxiety. 60 tablet 2 5 11:54 AM EST 025 Active metFORMIN ER (GLUCOPHAGE-XR) 500 MG 24 hr tablet Take 3 tablets by mouth Daily With Dinner. Do not crush, chew, or split. 270 tablet 1 5 8:46 AM EST 024 2024 Discontinue d(*Therapy completed) ubrogepant (UBRELVY) 100 MG tabletIndications :Migraine without status migrainosus, not intractable, unspecified migraine type Take 1 tablet by mouth as needed for migraines. may repeat in 2 hours if needed. max 2 tablets per 24 hours 16 tablet 1 4 9:02 AM EST 024 2024 Discontinue d(*Therapy completed) busPIRone (BUSPAR) 5 MG tablet Take 1 tablet by mouth 3 (Three) Times a Day As Needed for anxiety 90 tablet 5 4:25 PM EST 025 2024 Discontinue d(*Therapy completed) lisdexamfetamine (Vyvanse) 70 MG capsule Take 1 capsule by mouth Every Morning 30 capsule 5 3:58 PM EST 025 2024 Discontinue d(External Interface Message) Progesterone (PROMETRIUM) 200 MG capsule Take 1 capsule (200 mg) by mouth every night. Take on cycle days 16-25 only. 90 capsule 5 2:03 PM EST 025 2024 Discontinue d(*Therapy completed) busPIRone (BUSPAR) 5 MG tablet Take 1 tablet by mouth 3 times a day as directed for anxiety. 90 tablet 2 5 5:20 PM EST 025 2024 Discontinue d(*Therapy completed) topiramate (TOPAMAX) 25 MG tablet Take 1 tablet by mouth 2 (Two) Times a Day. 60 tablet 2 5 5:20 PM EST 025 2024 Discontinue d(*Therapy completed) busPIRone (BUSPAR) 10 MG tablet Take 1 tablet by mouth 2 (Two) Times a Day as directed for anxiety. 60 tablet 2 025 2024 Discontinue d(*Therapy completed) buPROPion XL (Wellbutrin XL) 150 MG 24 hr tablet Take 1 tablet by mouth Every Morning. 30 tablet 2 5 2:22 PM EDT 025 2024 Discontinue d(*Therapy completed) metFORMIN ER (GLUCOPHAGE-XR) 500 MG 24 hr tablet Take 3 tablets by mouth Daily with dinner do not crush chew or split 270 tablet 3 5 7:16 AM EST 025 2024 Discontinue d(*Therapy completed) doxycycline (VIBRAMYCIN) 100 MG capsule Take 1 capsule by mouth 2 (Two) Times a Day as directed. 10 capsule 3 5 8:09 AM EDT 025 2024 Discontinue d(*Therapy completed) predniSONE (DELTASONE) 5 MG tablet Take 1 tablet by mouth 2 (Two) Times a Day as directed by provider 60 tablet 3 5 10:53 AM EDT 025 2024 Discontinue d(*Therapy completed) Chlorcyclizine-Ps eudoephed (Stahist AD) 25-60 MG tabletIndications :Seasonal allergic rhinitis, unspecified trigger Take 1 tablet by mouth 3 times a day. 21 tablet 5 12:10 PM EDT 025 2024 Discontinue d(*Therapy completed) levothyroxine (Synthroid) 50 MCG tablet Take 1 (one) tablet by mouth on an empty stomach Every Morning 30-45 minutes Before Breakfast. 30 tablet 3 5 10:01 AM EDT 025 2024 Discontinue d(*Therapy completed) busPIRone (BUSPAR) 10 MG tablet Take 1 tablet by mouth 2 (Two) Times a Day for Anxiety 60 tablet 2 5 4:31 PM EDT 025 2024 Discontinue d(Reorder) cabergoline (DOSTINEX) 0.5 MG tablet Take 1 tablet by mouth Daily for 8 days for OHSS treatment. 8 tablet 5 12:08 PM EDT 025 2024 Discontinue d(*Therapy completed) estradiol (Estrace) 2 MG tablet Take 1 tablet by mouth 2 (Two) Times a Day DIRECTED. 60 tablet 3 5 11:29 AM EDT 025 2024 Discontinue d(*Therapy completed) Needle, Disp, (BD PrecisionGlide Needle) 23G X 1-1/2 misc For daily use with Progesterone in Oil 30 each 3 5 11:29 AM EDT 025 2024 Discontinue d(Alternate therapy) Syringe/Needle, Disp, (B-D 3CC LUER-BLANCA SYR 29XW3-0/2) 18G X 1-1/2 3 ML misc For Daily Use with Progesterone in Oil 30 each 3 5 11:29 AM EDT 025 2024 Discontinue d(Alternate therapy) predniSONE (DELTASONE) 20 MG tabletIndications :Upper respiratory tract infection, unspecified type Take 1 tablet by mouth Daily for 5 days. 5 tablet 025 2024 Active Problems Problem Noted Date Diagnosed Date Female infertility 11/12/2024 Heartburn 10/25/2022 Overview (10/25/2022): episodic. PRN tums; No hx of EGD or h pylori GIFTY (iron deficiency anemia) 10/25/2022 Palpitations 10/25/2022 Prediabetes 10/25/2022 PCOS (polycystic ovarian syndrome) 10/25/2022 Annual STAGE ELECTRICIAN exam 10/02/2022 Overview (10/04/2022): SCREENING TESTS Year 2019 2020 2021 2021 2022 2023 2024 2025 2026 2027 2028 2029 2030 2031 2032 2033 2034 2035 Age PAP - - - - 7 HPV high risk MAGDIEL [Birads] SHRUTHI (5 year) Lashonda Soriano (lifetime) Colonoscopy DEXA [T-score] Frax [hip/any] Lipids [LDL / HDL / TG] Vitamin D TSH Enter the month test was performed. 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 Weight is unchanged. BMI is above average; BMI management plan is completed. We discussed low calorie, low carb based diet program, portion control, and increasing exercise. PCOS (polycystic ovarian syndrome) 10/26/2012 Migraine without status migrainosus, not intract able 10/26/2012 Depression with anxiety 10/26/2012 Resolved Problems Problem Noted Date Diagnosed Date Resolved Date Acute lateral meniscus tear of left knee 11/18/2020 10/02/2022 Encounters Date Type Department Care Team Description 02/06/2025 Patient rounding ([facility] [place] only) [facility] [address] [facility] [address] [place] [address] Mariya Cleary PCT 02/05/2025 9:09 AM EST - 02/05/2025 10:11 AM EST Hospital Encounter [facility] [address] [facility] [address] [place] [address] Mariya Gay, GREY Acute cough (Primary Dx); Upper respiratory tract infection, unspecified type Discharge Disposition: Home or Self Care 02/05/2025 Travel 01/05/2025 Refill [facility] [address] [place] [address] Chelsea Bruno APRN Gastroesophageal reflux disease without esophagitis 12/09/2024 7:05 AM EDT Lab [facility] [address] [facility] [address] [address] examination or test, unconfirmed 12/09/2024 Travel 12/02/2024 6:40 AM EDT Lab [facility] [address] [place] [address] Other investigation and testing for procreative management 12/02/2024 Travel from Last 3 Months Immunizations Immunization Administration Dates Next Due COVID-19 (MODERNA) 1st,2nd,3 rd Dose Monovalent 01/26/2021,05/01/2020,04/03/2020 DTaP 11/14/1997, 6,05/10/1994,02/24,01/03/1994 Fluzone >6mos 01/12/2024 Hepatitis B Adult/Adolescent IM 02/25/1996,08/03,01/03/1994 Hib (PRP-OMP) 06/22/1995, 5,02/24/1994,01/03 IPV 11/14/1997, 6,02/24/1994,01/03 Influenza Injectable Mdck Pf Quad 02/01/2023 Influenza, Unspecified 01/27/2019,2017,06/07/2017,12/09,02/22/2008,02/28/2007 MMR 11/14/1997,02/22/1995 Meningococcal MCV4P (Menactra) 12/09/2008 PPD Test 04/02/2013 Td (TDVAX) 10/15/2004 Tdap 06/07/2017,12/09/2008 Varicella 12/09/2008,11/14/1997 Family History Medical History Relation Name Comments Alcohol abuse Father Marc Depression Father Marc Heart attack Father Marc Heart disease Father Marc Hypertension Father Marc Liver disease Father Marc Vision loss Father Marc Cancer Maternal Grandfather Blair Stroke Maternal Grandmother Sary Depression Mother Mariya Diabetes Mother Mariya Miscarriages / Stillbirths Mother Mariya Stroke Mother Mariya Relation Name Status Comments Father Marc Alive Maternal Grandfather Blair Maternal Grandmother Sary Mother Mariya Alive Paternal Grandfather Paternal Grandmother Social History Tobacco [...] AM EDT Sexual Orientation Not on file Last Filed [...] Mass Index 62.95 02/05/2025 9:21 AM EST Plan of Treatment Upcoming Encounters Date Type Department Care Team (Late st Contact Info) Description 03/07/2025 8:15 AM EST Office Visit [facility] [address] [place] [address] Chelsea Bruno, OPERATIONS MANAGER ASSISTANT [address] [place] [address] Health Maintenance Due Date Last Done Comments Pneumococcal Vaccine 0-49 (1 of 2 - PCV) 2012 Annual Gynecologic Pelvic an d Breast Exam 10/05/2023 10/03/2022 ANNUAL PHYSICAL 10/17/2024 10/18/2023 INFLUENZA VACCINE 10/18/2024 01/12/2024, , 01/27/2019, Additional history exists PAP SMEAR 10/03/2025 10/03/2022 TDAP/TD VACCINES (4 - Td or Tdap) 06/08/2027 06/07/2017, 12/09/2008, 10/15/2004 HEPATITIS C SCREENING Completed 06/13/2013 Goals Goal Patient Goal Type Associated Problems Recent Progress Patient-Stated? Author Specialty Pharmacy General Goal General On track(04/04/19 10:35 AM EST) No Leighton Oshea RPH Note: Reduce severity and duration of acute migraine headache by 50% Specialty Pharmacy General Goal General On track(12/03/19 11:29 AM EDT) No Rola Crawford RPH Note: Positive outcome during IVF cycle. Procedures Procedure Name Priority Date/Time Associated Diagnosis Comments COVID-19 + FLU A&B AG, VERITOR STAT 02/05/2025 9:41 AM EST PROGESTERONE STAT 12/09/2024 7:05 AM EDT examination or test, unconfirmed HCG, QUANTITATIVE, STAT 12/09/2024 7:05 AM EDT examination or test, unconfirmed PROGESTERONE STAT 12/02/2024 6:38 AM EDT Other investigation and testing for procreative management ESTRADIOL STAT 12/02/2024 6:38 AM EDT Other investigation and testing for procreative management LIQUID-BASED PAP SMEAR WITH HPV GENOTYPING IF ASCUS, [facility] ([facility]) Routine 10/03/2022 9:51 AM EDT Annual STAGE ELECTRICIAN exam HEPATITIS C ANTIBODY Routine 06/13/2013 1:06 PM EDT from Last 3 Months or Most Recently Relevant to Health Maintenance Results * Covid-19 + Flu A&B AG, Veritor (02/05/2025 9:41 AM EST) COVID19 Not Detected Not Detected - Ref. Range Influenza A Antigen KENNEDI Not Detected Not Detected Influenza B Antigen KENNEDI Not Detected Not Detected Internal Control Passed Passed Lot Number [id number] Expiration Date 05/29/2025 Swab 02/05/2025 9:41 AM EST Mariya Gay APRN POINT OF CARE TEST ORDERA BLES Final Result * Progesterone (12/09/2024 7:05 AM EDT) Only the most recent of2 resultswithin the time period is included. Progesterone 28.40 ng/mL 12/09/2024 9:53 AM EDT [facility] Blood Venipuncture / Unknown 12/09/2024 7:05 AM EDT 12/09/2024 7:05 AM EDT Narrative [facility] - 12/09/2024 9:53 AM EDT Progesterone Reference Ranges: Adult Males: 0.0-0.5 ng/mL Adult Femles: Follicular phase 0.1-0.9 ng/mL Ovulation phase 0.1-12.0 ng/mL Luteal phase 1.8-23.9 ng/mL Postmenopausal 0.0-0.1 ng/mL : First Trimester 11.0-44.3 ng/mL Second Trimester 25.4-83.3 ng/mL Third Trimester 58.7-214.0 ng/mL Results may be falsely increased if patient taking Biotin. Tobias Randall MD LAB BLOOD ORDERABLES Final Res ult [facility]
[address] [place] [address], * hCG, Quantitative, (12/09/2024 7:05 AM EDT) HCG Quantitative <0.10 mIU/mL 12/10/19 7:42 AM EDT [facility] Blood Venipuncture / Unknown 12/09/2024 7:05 AM EDT 12/09/2024 7:05 AM EDT [facility] - 12/09/2024 7:42 AM EDT HCG Ranges by Gestational Age Females - non- premenopausal </= 1mIU/mL HCG Females - postmenopausal </= 7mIU/mL HCG 3 Weeks 5.8 - 71.2 mIU/mL 4 Weeks 9.5 - 750 mIU/mL 5 Weeks 217 - 7,138 mIU/mL 6 Weeks 158 - 31,795 mIU/mL 7 Weeks 3,697 - 163,563 mIU/mL 8 Weeks 32,065 - 149,571 mIU/mL 9 Weeks 63,803 - 151,410 mIU/mL 10 Weeks 46,509 - 186,977 mIU/mL 12 Weeks 27,832 - 210,612 mIU/mL 14 Weeks 13,950 - 62,530 mIU/mL 15 Weeks 12,039 - 70,971 mIU/mL 16 Weeks 9,040 - 56,451 mIU/mL 17 Weeks 8,175 - 55,868 mIU/mL 18 Weeks 8,099 - 58,176 mIU/mL us Tobias Randall MD LAB BLOOD ORDERABLES Final Res ult [facility]
[address] [place] [address], * Estradiol (12/02/2024 6:38 AM EDT) Estradiol 188.0 pg/mL 12/02/2024 12:30 PM EDT [facility] Blood Venipuncture / Unknown 12/02/2024 6:38 AM EDT 12/02/2024 6:38 AM EDT Narrative [facility] - 12/02/2024 12:30 PM EDT Estradiol Reference Ranges: Adult Males: 7.6-42.6 pg/mL Adult Femles: Follicular phase 12.5-166.0 pg/mL Ovulation phase 85.8-498.0 pg/mL Luteal phase 43.8-211.0 pg/mL Postmenopausal <6.0-54.7 pg/mL : First Trimester 215.0- >4300.0 pg/mL Child (1-10 years): Male <6.0-20.0 pg/mL Female 6.0-27.0 pg/mL Results may be falsely increased if patient taking Biotin. us Tobias Randall MD LAB BLOOD ORDERABLES Final Res ult [facility]
[address] [place] [address], * LIQUID-BASED PAP SMEAR WITH HPV GENOTYPING IF ASCUS ([facility]) (10/03/2022 9:51 AM EDT) Reference Lab Report [facility] [address] [place] [address] or [phone] Mike Castillo M.D., Head Athletic Trainer PATIENT NAME [facility]ATORY NO[facility]BIE KUMAR [id number] AGE SEX SSN CLIENT REF # SHANI MEANS MD 1995 F [id number] SHANI MEANS MD REQUESTING M.D. ATTENDING M.D. COPY TO. [address] [facility] [address] [place] [id number] DATE COLLECTED DATE RECEIVED DATE REPORTED 10/03/2022 10/03/2022 10/04/2022 ThinPrep Pap with Cytyc Imaging DIAGNOSIS: Negative for intraepithelial lesion or malignancy Multiple factors can influence accuracy of Pap tests; therefore, screening at regular intervals is necessary for early cancer detection. SPECIMEN ADEQUACY: SATISFACTORY FOR EVALUATION Transformation zone is present. Partially obscuring lubricant is present. SOURCE OF SPECIMEN: CERVICAL SLIDES: 1 CLINICAL HISTORY: Well woman exam RESIDENT SERVICES SUPERVISOR: BRODIE BERG (ASCP) CPT CODES: 22595 10/04/2022 6:43 AM EDT [facility] ThinPrep Vial Collection / Unknown 10/03/2022 9:51 AM EDT 10/03/2022 9:51 AM EDT Shani Means MD PATHOLOGY/CYTOLOGY ORDERAB LES Final Result [facility]
[address] [place] [address], [place] [phone] * Hepatitis C antibody (06/13/2013 1:06 PM EDT) Hep C Virus Ab NonReactive NONREACTIVE B [facility] Comment: DF by IF @ 06/13/2013 16:08 The signal to cutoff ratio (S/C) for the Hepatitis C antibodies is: Greater Than or Equal to 11.0 TEST INFORMATION: Hepatitis C Virus Antibody This test is performed using chemiluminescent immunoassay (CODY). Anti-HCV Signal Cutoff (S/C) Ratios (CODY): Less than 0.8 ................. NonReactive 0.80 to 1.00 .................. Equivocal Greater than 1.00 ............. Reactive This assay is intended for clinical diagnosis only. Blood specimen (specimen) 06/13/2013 1:06 PM EDT Narrative [facility] - 06/13/2013 4:08 PM EDT Specimen Type: Blood Arlene PICKARD LAB BLOOD ORDERABLES Final Result [facility] [address] [place] [address], [place] [phone] from Last 3 Months or Most Recently Relevant to Health Maintenance Insurance [employer] Care Teams Learning And Development Administrator Relationship Specialty Start Date End Date Chelsea Bruno APRN [address] [place] [address] PCP - General Nurse Practitioner 10/18/23
--- OUTSIDE RECORDS SUMMARY | 2025-02-22 08:29 | XMS_ITS | Encounter Summary ---
Author Organization Healthcare Address [address] [place] [address] Care Team Providers Care Mold Shifter Name Role Phone Deya Hidalgo MD Primary Care Provider + Chelsea Bruno APRN Primary Care Provider [phone] Reason for Visit * Reason Onset Date Comments Med Refill 11/24/2021 Encounter Details Date Type Department Care Team (Late st Contact Info) Description 11/24/2021 Refill [facility] [address] [facility] [place] [address] Vaishnavi Leung MD [address] [facility] [address] [place] [address] Prediabetes; PCOS (polycystic ovarian syndrome) Social History Tobacco Use Types Packs/Day Years Used Date Smoking Tobacco: Never Smokeless Tobacco: Never Alcohol Use Standard Drinks/Week Comments No 0 (1 standard drink = 0.6 oz pure alcohol) Alcoholic Drinks/day: Never Drank Alcohol PHQ-2 Answer Date Recorded Patient Health Questionnaire-2 Score 0 04/07/2021 Comments No Sex and Gender Information Value Date Recorded Sex Assigned at Female 05/14/2021 6:24 PM EST Legal Sex Female 8:10 PM EDT Gender Identity Female 05/14/2021 6:24 PM EST Sexual Orientation Not on file documented as of this encounter Plan of Treatment Not on file documented as of this encounter Visit Diagnoses Diagnosis Prediabetes Other abnormal glucose PCOS (polycystic ovarian syndrome) Polycystic ovaries documented in this encounter Additional Health Concerns Assessment Noted Time A fall risk assessment has been complete d for the patient 04/07/2021 2:24 PM EST documented as of this encounter Care Teams Mold Shifter Relationship Specialty Start Date End Date Deya Hidalgo MD [address] [facility] [place] [address] [place] [address] PCP - General Family Medicine 08/19/21 09/15/24 Chelsea Bruno APRN [address] [place] [address] PCP - General 11/13/24 documented as of this encounter
--- OUTSIDE RECORDS SUMMARY | 2025-02-22 08:30 | XMS_ITS | Encounter Summary ---
[facility] Organization [facility] Address [address] [place] [address] Care Team Providers Care Button Broacher Name Role Phone Chelsea Bruno APRN Primary Care Provider Encounter Details Date Type Department Care Team (Late st Contact Info) Description 06/13/2024 Results Follow-Up [facility] [address] [place] [address] Chelsea Bruno APRN [address] [place] [address] Social History Tobacco Use Types Packs/Day Years Used Date Smoking Tobacco: Former Cigarettes 1 1.1 0 06/18/2018 - 07/19/2019 Smokeless Tobacco: Never Alcohol Use Standard Drinks/Week [...] Description 03/07/2025 8:15 AM EST Office Visit [facility] [address] [place] [phone] Chelsea Bruno, GREY [address] [place] [address] documented as of this encounter Goals Goal Patient Goal Type Associated Problems Recent Progress Patient-Stated? Author Specialty Pharmacy General Goal General On track(04/04/19 10:35 AM EST) Le[facility]on [facility] Note: Reduce severity and duration of acute migraine headache by 50% documented as of this encounter Visit Diagnoses Not on filedocumented in this encounter Additional Health Concerns Infection Onset Date Last Indicated Resolved Time COVID (rule out) 02/05/2025 02/05/2025 02/05/2025 9:41 AM EST documented as of this encounter Care Teams Button Broacher Relationship Specialty Start Date End Date Chelsea Bruno, CHARGE PREPARATION TECHNICIAN [address] [place] [address] PCP - General Nurse Practitioner 10/18/23 documented as of this encounter
--- OUTSIDE RECORDS SUMMARY | 2025-02-22 08:30 | XMS_ITS | Encounter Summary ---
[facility] Address [address] [place] [address] Care Team Providers Care Aircraft Maintenance Instructor Name Role Phone Chelsea Bruno APRN Primary Care Provider Reason for Visit * Reason Comments Med Refill Encounter Details Date Type Department Care Team (Late st Contact Info) Description 01/05/2025 Refill [facility] [address] [place] [address] Chelsea Bruno APRN [address] [place] [address] Gastroesophageal reflux disease without esophagitis Social History Tobacco Use Types Packs/Day Years [...] Description 03/07/2025 8:15 AM EST Office Visit [facility] [address] [phone] Chelsea Bruno APRN [address] [phone] documented as of this encounter Goals Goal [...] as of this encounter Visit Diagnoses Diagnosis Gastroesophageal reflux disease without esophagitis Esophageal reflux documented in this encounter Care Teams Aircraft Maintenance Instructor Relationship Specialty Start Date End Date Chelsea Bruno APRN [address] [address] PCP - General Nurse Practitioner 10/18/23 documented as of this encounter
--- OUTSIDE RECORDS SUMMARY | 2025-02-22 08:30 | XMS_ITS | Encounter Summary ---
Author Organization [facility] yste Address [address] [place] [address] Care Team Providers Care Director Of Customer Acquisition Name Role Phone Chelsea Bruno GREY Primary Care Provider Encounter Details Date Type Department Care Team (Late st Contact Info) Description 02/06/2025 Patient rounding [place] [place] [facility] [address] [facility] [address] [place] [address] Mariya Cleary, DEVORA Social History Tobacco Use Types Packs/Day Years [...] Description 03/07/2025 8:15 AM EST Office Visit [facility] [address] [place] [address] Chelsea Bruno, MANAGER WEALTH MANAGEMENT [address] [place] [address] documented as of this encounter [...] Diagnoses Not on filedocumented in this encounter Care Teams Director Of Customer Acquisition Relationship Specialty Start Date End Date Chelsea Bruno, GREY [address] [place] [address] PCP - General Nurse Practitioner 10/18/23 documented as of this encounter
--- NOTE | 2025-02-22 08:50 | XR_ITS ---
PROCEDURE INFORMATION: Exam: XR Chest Exam date and time: 02/22/2025 9:42 AM Age: 29 years old Clinical indication: Pain; Cough; Chest pressure; Additional info: Cough, chest pain TECHNIQUE: Imaging protocol: Radiologic exam of the chest. Views: 2 views. COMPARISON: CT ABDOMEN PELVIS W CON 10/02/2023 10:18 AM FINDINGS: Lungs: Unremarkable. No consolidation. Pleural spaces: Unremarkable. No pleural effusion. No pneumothorax. Heart/Mediastinum: Unremarkable. No cardiomegaly. Bones/joints: Unremarkable. IMPRESSION: No acute findings.
--- NOTE | 2025-02-22 09:12 | ECG_ITS ---
APPROVED REPORT Exam: Resting ECG HR:91 bpm ECG Measurements Heart Rate 91 AXES KS 157 P 49 QRSd 95 QRS 68 QT 355 T 12 QTc 404 Conclusion SINUS RHYTHM NORMAL ECG UNCONFIRMED REPORT Electronically signed by : Abdullahi Yi, 02/22/2025 14:56:51
[2025-02-22 09:29] LABS: Adenovirus,PCR Not Detected (NotDetected); Chlamydophila Pneumoniae, PCR Not Detected (NotDetected); Coronavirus 19, PCR Not Detected (NotDetected); Coronovirus HKU1,PCR Not Detected (NotDetected); Influenza A, PCR Not Detected (NotDetected); Influenza AH1, 2009 Not Detected (NotDetected); Influenza AH1, PCR Not Detected (NotDetected); Influenza AH3,PCR Not Detected (NotDetected); Influenza B, PCR Not Detected (NotDetected); Mycoplasma Pneumoniae, PCR Not Detected (NotDetected); Parainfluenza 1, PCR Not Detected (NotDetected); Parainfluenza 2, PCR Not Detected (NotDetected); Parainfluenza 3, PCR Not Detected (NotDetected); Parainfluenza 4, PCR Not Detected (NotDetected)
--- NOTE | 2025-02-22 09:30 | HMH.EDGENADL ---
Discharge Plan Disposition Patient Disposition: Home, Self-Care Prescriptions Prescriptions: New benzonatate 100 mg capsule 100 mg PO TID PRN (Reason: cough) 5 Days Qty: 20 0RF ondansetron 4 mg tablet,disintegrating 4 mg PO Q6H PRN (Reason: nausea and vomiting) 5 Days Qty: 20 0RF No Action dextroamphetamine-amphetamine 20 mg capsule,extended release 24hr 40 mg PO DAILY Wegovy 1.7 mg/0.75 mL pen injector 1.7 mg SQ WEEKLY ondansetron 4 mg tablet,disintegrating 4 mg PO Q6H PRN (Reason: nausea and vomiting) 4 Days Qty: 16 0RF Referrals Follow up/Referrals: Provider,Referral, MD [Primary Care Provider, Medical] - See instructions Activity Restrictions/Add. Instructions Additional Instructions/Restrictions: No emergent medical condition identified today all of your symptoms are consistent with a rhino enterovirus infection. No pneumonia or heart involvement or significant electrolyte abnormalities or injury secondary to dehydration more found today. Please keep yourself well-hydrated. An additional medication has been prescribed for your cough but this will likely be self-limiting and the cough agents that you are taking will not be curative. Return with any significant worsening problems or concerns. Clinical Impressions Clinical Impression: Bronchitis, Nausea vomiting and diarrhea, Chest pain, Enterovirus infection Instructions Patient Instructions: Cough Print Language Print Language: American Discharge ED Provider: Ankur Yi General Adult HPI General Chief complaint: Cough Stated complaint: nausea, v/d, tightness in chest, cough Time Seen by Provider: 02/22/25 08:44 Mode of Arrival: Ambulatory Source of Information: Patient Description of Symptoms (Recalled from ER Triage Doc. by RN): pt presents to the ED with cough, nausea, vomiting, diarrhea, chills, chest tightness from the coughing. pt states that she was seen in the [facility] 2 weeks ago for the same symptoms and was prescribed medications but the symptoms haven't got better. History of Present Illness HPI narrative: Patient is a 29-year-old morbidly obese female with no other significant comorbidities who presents today with multiple complaints. States she started having a cough several weeks ago went to a urgent treatment clinic and was prescribed Bromfed and had some improvement in her cough. However the last 48 hours her cough is significantly worsened and she is developed nausea vomiting diarrhea and chest pain. This is what ultimately prompted her to come to the emergency department. Has thrown up 7 times this morning. No blood in her stool or vomit. She also states that her chest feels tight. No history of asthma etc. Related Data Home Medications ?Medication ?Instructions ?Recorded ?Confirmed dextroamphetamine-amphetamine ER 40 mg PO DAILY 10/02/23 10/02/23 20 mg 24hr capsule,extend release semaglutide (weight loss) 1.7 1.7 mg SQ WEEKLY 10/02/23 10/02/23 mg/0.75 mL subcutaneous pen injector (Wegovy) Previous Rx's ?Medication ?Instructions ?Recorded ondansetron 4 mg disintegrating 4 mg PO Q6H PRN nausea and 10/02/23 tablet vomiting 4 days #16 tabs benzonatate 100 mg capsule 100 mg PO TID PRN cough 5 days #20 02/22/25 caps ondansetron 4 mg disintegrating 4 mg PO Q6H PRN nausea and 02/22/25 tablet vomiting 5 days #20 tabs Allergies Allergy/AdvReac Type Severity Reaction Status Date / Time No Known Allergies Allergy Verified 10/02/23 09:37 [facility] Disclaimer: The information contained in this section may have been updated after the patient was seen, as this information can be updated by other users. Social History Smoking Status: Never smoker alcohol intake: never current occupational status: employed Travel in the last 8 weeks?: None Have you lived/traveled outside [place] in past 30 days?: No Contact w/someone who lives/traveled outside US past 30 days?: No Exposure to someone with infectious disease in past 14 days?: No Do you have a fever (greater than 100.4 F or 38 C)?: No Have you tested positive for COVID-19?: No Exposed to someone with COVID-19 in past 14 days?: No Do you have a sore throat?: No Do you have a cough?: Yes Do you have any weakness?: Yes Do you have any diarrhea?: Yes Are you experiencing any unusual bleeding?: No Do you have any muscle aches/pain?: No Do you have any abdominal pain?: No Are you experiencing loss of taste or smell?: No ROS Obtained: Yes All systems reviewed & no additional complaints except as documented Physical Exam General General appearance: alert Respiratory Respiratory exam: Present normal lung sounds bilaterally; Absent respiratory distress Cardiovascular Cardiovascular exam: Present regular rate and normal rhythm Abdominal Exam Abdominal exam: Present soft; Absent distention or tenderness Neurological Exam Neurological exam: Present alert and oriented X3 Medical Decision Making Medical Records Screening: Per USPSTF and CDC recommendations, given the prevalence of disease in our region, it is our hospital?s policy to screen for HIV and viral Hepatitis for all patients aged 18 and over and those with ongoing risk factors. Drew Inquiry Pt receiving controlled substance: No Vital Signs: 02/22/25 08:24 02/22/25 08:24 02/22/25 08:28 Temperature 98.4 F 98.4 F Temperature Source Oral Oral Pulse Rate 94 H 110 H Pulse Rate [Right] 94 H Respiratory Rate 18 18 Blood Pressure 147/69 H 147/69 H Blood Pressure [Right Arm] 147/69 H Blood Pressure Mean Blood Pressure Mean [Right Arm] 95 Blood Pressure Source Automatic Cuff Blood Pressure Source [Right Arm] Automatic Cuff Blood Pressure Position Supine Blood Pressure Position [Right Arm] Supine 02 Sat by Pulse Oximetry 98 98 98 Oxygen Delivery Method Room Air Room Air 02/22/25 08:31 02/22/25 09:02 02/22/25 09:50 Temperature Temperature Source Pulse Rate 101 H 101 H 89 Pulse Rate [Right] Respiratory Rate 16 Blood Pressure 127/66 122/92 H 115/54 L Blood Pressure [Right Arm] Blood Pressure Mean 75 Blood Pressure Mean [Right Arm] Blood Pressure Source Blood Pressure Source [Right Arm] Blood Pressure Position Blood Pressure Position [Right Arm] 02 Sat by Pulse Oximetry 98 98 96 Oxygen Delivery Method 02/22/25 10:01 02/22/25 10:31 02/22/25 11:01 Temperature Temperature Source Pulse Rate 86 74 84 Pulse Rate [Right] Respiratory Rate Blood Pressure 128/68 114/72 137/78 Blood Pressure [Right Arm] Blood Pressure Mean Blood Pressure Mean [Right Arm] Blood Pressure Source Blood Pressure Source [Right Arm] Blood Pressure Position Blood Pressure Position [Right Arm] 02 Sat by Pulse Oximetry 96 100 100 Oxygen Delivery Method 02/22/25 11:30 Temperature Temperature Source Pulse Rate 81 Pulse Rate [Right] Respiratory Rate Blood Pressure Blood Pressure [Right Arm] Blood Pressure Mean Blood Pressure Mean [Right Arm] Blood Pressure Source Blood Pressure Source [Right Arm] Blood Pressure Position Blood Pressure Position [Right Arm] 02 Sat by Pulse Oximetry 100 Oxygen Delivery Method Lab Data Lab results reviewed: Yes I reviewed the patient's lab results. Lab Results 02/22/25 09:10: WBC 9.1, RBC 5.08, Hgb 12.7, Hct 40.8, MCV 80.3 L, MCH 25.0 L, MCHC 31.1 L, RDW 15.5, Plt Count 339, MPV 10.9 H, Neut % (Auto) 74.7, Lymph % (Auto) 14.1, [place] % (Auto) 9.0, Eos % (Auto) 1.6, Baso % (Auto) 0.4, Neut # (Auto) 6.8, Lymph # (Auto) 1.3, [place] # (Auto) 0.8, Eos # (Auto) 0.2, Baso # (Auto) 0.0, Sodium 135 L, Potassium 3.7, Chloride 102, Carbon Dioxide 26, Anion Gap 10.7, BUN 8, Creatinine 0.90, Estimated Creat Clear 85, Estimated GFR 73, Est GFR ( Amer) 88, Glucose 95, Calcium 9.1, Total Bilirubin 0.5, AST 27, ALT 27, Alkaline Phosphatase 65, Troponin I < 0.01, Total Protein 8.3 H, Albumin 4.4, Globulin 3.9 H, Albumin/Globulin Ratio 1.1, Serum HCG, Qual Negative 02/22/25 09:25: Chlamy pneumoniae PCR Not detected, Adenovirus (PCR) Not detected, B. pertussis DNA (PCR) Not detected, Coronavirus OC43 (PCR) Not detected, Coronavirus HKU1 (PCR) Not detected, Coronavirus 229E (PCR) Not detected, SARS-CoV-2 (PCR) Not detected, Coronavirus NL63 (PCR) Not detected, Human Metapneumovir PCR Not detected, Influenza A (H1) PCR Not detected, Influ A (H1N1/09) PCR Not detected, Influenza A (H3) PCR Not detected, Influenza Type A (PCR) Not detected, Influenza Type B (PCR) Not detected, M. pneumoniae (PCR) Not detected, Parainfluenza 1 (PCR) Not detected, Parainfluenza 2 (PCR) Not detected, Parainfluenza 3 (PCR) Not detected, Parainfluenza 4 (PCR) Not detected, RSV (PCR) Not detected, Entero/Rhino (PCR) Detected A 02/22/25 09:10 02/22/25 09:10 Orders (Tests/Meds): ED MEDICATIONS Discontinued Medications Generic Name Dose Route Start Last Admin Trade Name Virajq PRN Reason Stop Dose Admin Lactated Ringer's 1,000 mls @ 999 mls/hr 02/22/25 09:00 02/22/25 11:03 Lactated Ringer's 1000 Ml Bag IV 02/22/25 10:00 Infused .Q1H1M CB Infusion Ketorolac Tromethamine 15 mg 02/22/25 08:50 02/22/25 09:46 Ketorolac 30mg/Ml Vial IV 02/22/25 08:51 Not Given ONCE ONE Ondansetron HCl 4 mg 02/22/25 08:50 02/22/25 09:42 Ondansetron 4mg/2ml Vial IV 02/22/25 08:51 4 mg ONCE ONE Administration ORDERS Category Date Time Status XR chest 2V Stat Exams 02/22/25 08:50 Completed CBC w/Auto Diff [Complete Blood Count Auto Diff] Stat Lab 02/22/25 09:10 Completed CMP [Comprehensive Metabolic Panel] Stat Lab 02/22/25 09:10 Completed Full Resp Panel w/COVID ([facility]) Routine Lab 02/22/25 09:25 Completed HCG Qualitative, Serum Stat Lab 02/22/25 09:10 Completed HIV Combo Stat Lab 02/22/25 09:10 Received Hepatitis C Ab Qual. W/ RFX Stat Lab 02/22/25 09:10 Received Trop I [Troponin I] Stat Lab 02/22/25 09:10 Completed Troponin I Q3H Lab 02/22/25 12:00 Ordered Troponin I Q3H Lab 02/22/25 15:00 Ordered Medical Decision Narrative: Patient with above history and physical. Abdominal exam is benign. She does not seem to be profoundly dehydrated however given the volume of vomiting and diarrhea we will check electrolytes and give IV fluids and Zofran. Patient also has chest pain which is most likely musculoskeletal in the setting of the chronic cough. She did have a biphasic response to this illness which most likely started as a virus which could be a superimposed bacterial infection or a concomitant GI related viral illness. Myocarditis remains on the differential as there is pneumonia. Chest x-ray will be performed EKG was performed which I personally interpreted which shows no acute ischemic changes or evidence of myocarditis or pericarditis. Ventricular rate was 91 no acute ischemic changes noted normal axis no significant conduction abnormalities noted. Will reassess after initial workup is complete. Reassessments 1141 chest x-ray performed which I personally interpreted shows no evidence of an acute cardiopulmonary emergency. No pneumonia specifically. Troponins undetectable does not consistent with myocarditis. Labs otherwise unremarkable. She did on her viral panel show positive rhino enterovirus. This is likely the cause of all of her symptoms at the moment. Supportive care including addition of Tessalon Perles and Zofran sent to her pharmacy patient was discharged in improved and stable condition. Critical Care Critical Care Time Critical Care Time: No
[2025-02-22 09:32] LABS: Hematocrit 40.8 % (37.0-47.0); Hemoglobin 12.7 g/dL (12.2-16.2); Immature Granulocytes % 0.2 %; Mean Corpuscular HGB Conc 31.1 g/dL (31.8-35.4); Mean Corpuscular Hemoglobin 25.0 pg (27.0-31.2); Mean Corpuscular Volume 80.3 fl (81-99); Nucleated Red Blood Cells % 0 %; Platelet Count 339 K/mm3 (142-424); Red Blood Count 5.08 M/mm3 (4.20-5.40); Red Cell Distribution Width-SD 45.1 fL; White Blood Count 9.1 K/mm3 (4.8-10.8)
[2025-02-22] MEDS: LACTATED RINGERS 1000ML 1,000 ML 999 ML IV (09:42)
[2025-02-22] MEDS: ONDANSETRON 4MG/2ML VIAL 4 MG IV (09:42)
[2025-02-22 09:46] LABS: HCG Qualitative, Serum Negative (Negative)
[2025-02-22 09:48] LABS: Alanine Aminotransferase 27 U/L (12-78); Albumin Level 4.4 g/dl (3.5-5.0); Albumin/Globulin Ratio 1.1 (1.1-1.8); Alkaline Phosphatase 65 U/L (38-126); Anion Gap 10.7 mEq/L (5-15); Aspartate Amino Transferase 27 U/L (14-36); Bilirubin,Total 0.5 mg/dl (0.2-1.3); Blood Urea Nitrogen 8 mg/dl (7-17); Calcium 9.1 mg/dl (8.4-10.2); Carbon Dioxide 26 mmol/L (22.0-30.0); Chloride 102 mmol/L (98-107); Creatinine Clearance Estimated 85 mL/min (50-200); Creatinine,Serum 0.90 mg/dl (0.52-1.04); Estimated Glomerular Filt Rate 73 ml/min (>60); GFR (African American) 88 ML/MIN (>60); Globulin 3.9 g/dL (1.3-3.2); Glucose 95 mg/dl (74-100); Potassium 3.7 mmoL/L (3.5-5.1); Sodium 135 mmol/L (136-145); Total Protein,Serum 8.3 g/dl (6.3-8.2)
[2025-02-22 10:09] LABS: Troponin I < 0.01 ng/ml (0.00-0.034)
[2025-02-22 13:26] LABS: Hepatitis C Ab Qual. W/ RFX NEGATIVE (Negative)
== END 2025-02-22 11:50 | disposition home or self-care (01) ==
PROVIDERS: Emergency Provider Student in an Organized Health Care Education/Training Program
DX: J40 Bronchitis, not specified as acute or chronic (principal); R07.9 Chest pain, unspecified; B34.1 Enterovirus infection, unspecified; E66.01 Morbid (severe) obesity due to excess calories
CPT/HCPCS: 0223U; 71046; 80053; 84484; 84703; 85025; 86803; 87389; 93005; 96361; 96374; 96375; 99285; J2405; J7120

== ENCOUNTER 2025-03-17 07:18 | Emergency (ER) | payer BC, SELFPAY ==
--- OUTSIDE RECORDS SUMMARY | 2025-02-05 09:09 | XMS_ITS | Encounter Summary ---
Author Organization [facility] yste Address [address] [place] [address] Care Team Providers Care Building Estimator Name Role Phone Chelsea Bruno GREY Primary Care Provider [phone] Reason for Visit * Reason Comments Cough Sx started week ago. Sx include cough, SOB, cough causing vomiting. Encounter Details Date Type Department Care Team (Late st Contact Info) Description 02/05/2025 9:09 AM EST - 02/05/2025 10:11 AM [facility] Hospital Encounter [facility] [address] [facility] [address] [place] [address] Mariya Gay APRN [address] [facility] [address] [place] [address] Acute cough (Primary Dx); Upper [...] sent through Care Everywhere. * Cough Adult (Yemeni) * Infection in the Nose Throat and Airways (Upper Respiratory Infection) in Adults: What to Know (Yemeni) documented in this encounter Medications at Time of Discharge albuterol sulfate HFA 108 (90 Base) MCG/ACT inhalerIndications: Upper respiratory tract infection, unspecified type Inhale 2 puffs Every 4 (Four) Hours As Needed for Shortness of Air or Wheezing. 18 g brompheniramine-pse udoephedrine-DM 30-2-10 MG/5ML syrupIndications:Ac see cough,Upper respiratory tract infection, unspecified type Take [...] 5 04/10/19 26 Needle, Disp, (BD Disp [place]) 18G X 1-1/2 misc Use 1 Needle [...] 5 Syringe/Needle, Disp, (B-D 3CC LUER-BLANCA SYR 25CO4-8/2) 23G X 1-1/2 3 ML misc Use [...] 25 Syringe/Needle, Disp, (B-D 3CC LUER-BLANCA SYR 88VF0-9/2) 18G X 1-1/2 3 ML misc For [...] Course User Index [MS] Mariya Gay APRN @[facility]@ @[facility]@ Labs Reviewed COVID-19 + FLU A&B AG, VERITOR - Normal Imaging Results: No orders to display Diagnoses and all orders for this visit: 1. Acute cough (Primary) - kjfowhhxafkkkkl-sevaqkmffmjndpk-LJ 30-2-10 MG/5ML syrup; Take 5 mL by mouth 4 (Four) Times a Day As Needed for Congestion, Cough or Allergies. Dispense: 118 mL; Refill: 0 2. Upper respiratory tract infection, unspecified type - bdxaqkufjufihmk-lqmjjjmvngtnuyq-JC 30-2-10 MG/5ML syrup; Take 5 mL by [...] Care Team (Late st Contact Info) Description 03/09/2026 8:15 AM EST Office Visit [facility] [address] [phone] Chelsea Bruno, SCALE AND SKIP CAR OPERATOR [address] [address] documented as of this encounter Goals Goal Patient Goal Type Associated Problems Recent Progress Patient-Stated? Author Specialty Pharmacy General Goal General On track(04/04/19 10:35 AM EST) No Leighton Oshea RPH Note: Reduce severity and duration of acute migraine headache by 50% Specialty Pharmacy General Goal General On track(12/03/19 11:29 AM EDT) No Rola Crawford [facility] Note: Positive outcome during IVF cycle. documented [...] Date 05/29/2025 Swab 02/05/2025 9:41 AM EST [facility] POINT OF CARE TEST ORDERA BLES Final Result documented in this encounter Visit Diagnoses Diagnosis Acute cough- Primary Upper respiratory tract infection, unspecified type documented in this encounter Additional Health Concerns Infection Onset Date Last Indicated Resolved Time COVID (rule out) 02/05/2025 02/05/2025 02/05/2025 9:41 AM EST documented as of this encounter Care Teams Building Estimator Relationship Specialty Start Date End Date Chelsea Bruno APRN [address] [place] [id number] PCP - General Nurse Practitioner 10/18/23 documented as of this encounter
--- OUTSIDE RECORDS SUMMARY | 2025-03-07 08:15 | XMS_ITS | Encounter Summary ---
[facility] Address [address] [place] [address] Care Team Providers Care Isotope Technician Name Role Phone Chelsea Bruno APRN Primary Care Provider [phone] Reason for Referral * Consultation (Routine) - Authorized Specialty Diagnoses / Procedures Referred By Contac t Referred To Contact Diagnoses Environmental and seasonal allergies Eczema, unspecified type Procedures DE OFFICE/OUTPATIENT NEW MODERATE MDM 45 MINUTES Chelsea Bruno APRN [address] [place] [address] Phone: tel: fax: Reese Raphael MD [address] [place] [address] Phone: tel: fax: Referral ID Status Reason Start Date Expiration Date Visits Requested Visits Authorized [id number] Authorized Specialty Services Required 06/06/2026 1 1 Reason for Visit * Reason Comments Annual Exam Encounter Details Date Type Department Care Team (Latest Contact Info) Description 03/07/2025 8:15 AM EST Office Visit [facility] [address] [place] [address] Chelsea Bruno APRN [address] [place] [address] Annual physical exam (Primary Dx); Morbid obesity with BMI of 60.0-69.9, adult; Prediabetes; Screening for cardiovascular condition; PCOS (polycystic ovarian syndrome); Female fertility problem; Environmental and seasonal allergies; Eczema, unspecified type Social History Tobacco Use Types Packs/Day Years [...] Sign Reading Time Taken Comments Blood Pressure 130/80 03/07/2025 8:07 AM EST Pulse 74 03/07/2025 8:07 AM EST Temperature 36.8 C (98.3 F) 03/07/2025 8:07 AM EST Respiratory Rate 20 03/07/2025 8:07 AM EST Oxygen Saturation 98% 03/07/2025 8:07 AM EST Inhaled Oxygen Concentration - - Weight 183 kg (404 lb) 03/07/2025 8:07 AM EST Height 167.6 cm (5' 6 ) 03/07/2025 8:07 AM EST Body Mass Index 65.21 03/07/2025 8:07 AM EST documented in this encounter Progress Notes * Chelsea Bruno, MATTRESS RENOVATOR - 03/07/2025 8:15 AM EST Patient Name: Milagro Nash : 1995 Chief Complaint: Chief Complaint Patient presents with Annual Exam History of Present Illness: Milagro Nash is a 29 y.o. female who is here today for their annual health maintenance and physical. HPI History of Present Illness The patient presents for an annual physical exam. She has been undergoing treatment at [facility] in [place] for IVF, which necessitates frequent travel. Two failed transfers occurred in 10/2024 and 11/2024, leading to a temporary cessation of treatment. Weight gain due to prednisone use has been noted, and she is currently on Mounjaro for weight loss. Another transfer is planned for 05/2025. 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 Severe nausea is experienced as a side effect of Mounjaro, and she requests Zofran for relief. The compounded version of Mounjaro with B6 is administered via insulin syringe up to 40 units. A history of severe eczema and allergies is reported, with daily use of three Zyrtec, Benadryl, andFlonase. Despite this regimen, symptoms persist. She believes her condition may be immune-related and wishes to consult an atomic physics professor. Allergy injections were previously received approximately 10 years ago. Thyroid issues have been present since 07/2024, attributed to an egg retrieval procedure. Initiallyelevated thyroid levels led to a prescription of levothyroxine 50 mcg, causing levels to drop too low. Reevaluation of the need for medication is requested, and levothyroxine has not been taken for the past one to two months. An annual eye examination is due in 03/2025, and regular dental check-ups are maintained every six months. A D and C procedure is scheduled for 03/2025. Review of Systems: Review of Systems Constitutional: Negative for fatigue. Past Medical History, Social History, Family History and Care Team were all reviewed with patient and updated as appropriate. Medications: Current Outpatient Medications: albuterol sulfate HFA 108 (90 Base) MCG/ACT inhaler, Inhale 2 puffs Every 4 (Four) Hours As Needed for Shortness of Air or Wheezing., Disp: 18 g, Rfl: 0 busPIRone (BUSPAR) 10 MG tablet, Take 1 tablet by mouth 2 (Two) Times a Day for anxiety., Disp: 60 tablet, Rfl: 2 cetirizine (zyrTEC) 10 MG tablet, Take 1 tablet by mouth Daily., Disp: , Rfl: estradiol (Estrace) 2 MG tablet, Take 1 tablet by mouth 2 times daily AND insert 1 tablet vaginallyonce daily., Disp: 90 tablet, Rfl: 3 famotidine (Pepcid) 20 MG tablet, Take 1 tablet by mouth 2 (Two) Times a Day., Disp: 60 tablet, Rfl: 0 metFORMIN ER (GLUCOPHAGE-XR) 500 MG 24 hr tablet, Take 2 tablets by mouth 2 (Two) Times a Day., Disp: 120 tablet, Rfl: 3 metFORMIN ER (GLUCOPHAGE-XR) 500 MG 24 hr tablet, Take 1 tablet by mouth Daily with a meal for 7 days, THEN increase to 2 tablets Daily with a meal thereafter, Disp: 60 tablet, Rfl: 1 Needle, Disp, (BD Disp Henry) 18G X 1-1/2 misc, Use 1 Needle with Progesterone in Oil as directed Daily., Disp: 30 each, Rfl: 2 Omegaven 10 GM/100ML emulsion, Infuse 10 grams intravenously per protocol, Disp: , Rfl: Progesterone (Prometrium) 200 MG capsule, Insert 1 capsule into the vagina 2 (Two) Times a Day DIRECTED., Disp: 60 capsule, Rfl: 3 progesterone oil 50 MG/ML injection, Inject 1 mL into the appropriate muscle as directed by prescriber Daily DIRECTED., Disp: 30 mL, Rfl: 3 Syringe/Needle, Disp, (B-D 3CC LUER-BLANCA SYR 00QH7-9/2) 23G X 1-1/2 3 ML misc, Use to inject Progesterone in Oil as directed Daily., Disp: 30 each, Rfl: 2 tacrolimus (Prograf) 1 MG capsule, Take one (1) capsule by mouth three times daily as directed by provider for infertility, Disp: 30 capsule, Rfl: 1 triamcinolone (KENALOG) 0.1 % cream, Apply 1 Application topically to the appropriate area as directed 2 (Two) Times a Day., Disp: 45 g, Rfl: 1 onszhonxvaoarcy-cgycnsrylqcqkyw-CV 30-2-10 MG/5ML syrup, Take 5 mL by mouth 4 (Four) Times a Day AsNeeded for Congestion, Cough or Allergies. (Patient not taking: Reported on 03/07/2025), Disp: 118 mL, Rfl: 0 enoxaparin sodium (Lovenox) 30 MG/0.3ML solution prefilled syringe syringe, Inject 0.3 mL (one syringe) under the skin into the appropriate area as directed 2 (Two) Times a Day. (Patient not taking: Reported on 03/07/2025), Disp: 18 mL, Rfl: 3 Allergies: Allergies Allergen Reactions Molds & Smuts Other (See Comments) Shellfish Protein-Containing Drug Products Other (See Comments) positive on allergy testing Depression: PHQ-2 Depression Screening PHQ-2 Total Score: PHQ-9 Total Score: Intimate partner violence: (Screen on initial visit, women, women with injuries, older adult with injury or evidence of neglect): Violence can be a problem in many people's lives, so I now ask every patient about trauma or abuse they may have experienced in a relationship. Stress/Safety - Do you feel safe in your relationship? Afraid/Abused - Have you ever been in a relationship where you were threatened, hurt, or afraid? Friend/Family - Are your friends aware you have been hurt? Emergency Plan - Do you have a safe place to go and the resources you need in an emergency? Osteoporosis: Ost menopausal women < 65 with RF (advancing age, previous fracture, glucocorticoid therapy, parental hip fracture, low body weight, current cigarette smoking, excessive alcohol consumption, rheumatoid arthritis, secondary osteoporosis [hypogonadism/premature menopause, malabsorption, chronic liver disease, IBD]). All women 65 or older Physical Exam: Vital Signs: Vitals: 03/07/25 0807 BP: 130/80 Pulse: 74 Resp: 20 Temp: 98.3 ??F (36.8 ??C) SpO2: 98% Weight: (!) 183 kg (404 lb) Height: 167.6 cm (66 ) Body mass index is 65.21 kg/m??. Physical Exam Vitals and nursing note reviewed. Constitutional: General: She is awake. Appearance: Normal appearance. She is well-developed. She is morbidly obese. HENT: Head: Normocephalic and atraumatic. Right Ear: Tympanic membrane, ear canal and external ear normal. Left Ear: Tympanic membrane, ear canal and external ear normal. Nose: Nose normal. Mouth/Throat: Mouth: Mucous membranes are moist. Pharynx: Oropharynx is clear. Eyes: Pupils: Pupils are equal, round, and reactive to light. Cardiovascular: Rate and Rhythm: Normal rate and regular rhythm. Pulses: Normal pulses. Heart sounds: Normal heart sounds. Pulmonary: Effort: Pulmonary effort is normal. Breath sounds: Normal breath sounds. Musculoskeletal: General: Normal range of motion. Right lower leg: No edema. Left lower leg: No edema. Lymphadenopathy: Cervical: No cervical adenopathy. Skin: General: Skin is warm. Capillary Refill: Capillary refill takes less than 2 seconds. Neurological: General: No focal deficit present. Mental Status: She is alert and oriented to person, place, and time. Psychiatric: Mood and Affect: Mood normal. Behavior: Behavior normal. Behavior is cooperative. Thought Content: Thought content normal. Judgment: Judgment normal. Procedures Assessment/Plan: Diagnoses and all orders for this visit: 1. Annual physical exam (Primary) - CBC & Differential - Comprehensive metabolic panel - TSH - T4, Free - Vitamin D,25-Hydroxy - Lipid Panel - Hemoglobin A1c - Vitamin B12 & Folate 2. Morbid obesity with BMI of 60.0-69.9, adult - CBC & Differential - Comprehensive metabolic panel - TSH - T4, Free - Vitamin D,25-Hydroxy - Lipid Panel - Hemoglobin A1c - Vitamin B12 & Folate 3. Prediabetes - CBC & Differential - Comprehensive metabolic panel - TSH - T4, Free - Vitamin D,25-Hydroxy - Lipid Panel - Hemoglobin A1c - Vitamin B12 & Folate 4. Screening for cardiovascular condition - CBC & Differential - Comprehensive metabolic panel - TSH - T4, Free - Vitamin D,25-Hydroxy - Lipid Panel - Hemoglobin A1c - Vitamin B12 & Folate 5. PCOS (polycystic ovarian syndrome) - CBC & Differential - Comprehensive metabolic panel - TSH - T4, Free - Vitamin D,25-Hydroxy - Lipid Panel - Hemoglobin A1c - Vitamin B12 & Folate 6. Female fertility problem - CBC & Differential - Comprehensive metabolic panel - TSH - T4, Free - Vitamin D,25-Hydroxy - Lipid Panel - Hemoglobin A1c - Vitamin B12 & Folate 7. Environmental and seasonal allergies - Ambulatory Referral to Allergy 8. Eczema, unspecified type - Ambulatory Referral to Allergy Assessment & Plan 1. Annual physical examination: - Pap smear results were satisfactory, with the next one due in 2025. All other health parameters are current. - A comprehensive set of laboratory tests will be conducted, including blood counts, kidney and liver function, thyroid, vitamin D and B12, cholesterol, and A1c. 2. Thyroid dysfunction: - She was previously on levothyroxine 50 mcg, which caused her thyroid levels to drop too low. She has not taken levothyroxine for the past month or two. - Thyroid function tests will be conducted to reassess the need for medication. 3. Weight management: - She is currently on Mounjaro for weight loss and has experienced significant nausea. - A prescription for Zofran will be provided to manage the nausea associated with Mounjaro. 4. 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 - A referral to an atomic physics professor will be made for further evaluation. 5. Eczema and allergies: - She has severe eczema and allergies, currently managed with Zyrtec, Benadryl, and Flonase. - A referral to an atomic physics professor will be made for further evaluation and management. Patient or patient passenger representative verbalized consent for the use of Ambient Listening during the visit with Chelsea Bruno APRN for chart documentation. 03/07/2025 08:22 EST Follow Up: Return in about 1 year (around 03/07/2026) for Annual physical. Healthcare Maintenance: Counseling provided on preventative care and vaccines. Milagro Charity voices understanding and acceptance of this advice and will call back with any furtherquestions or concerns. AVS with preventive healthcare tips printed for patient. Chelsea Butler APRN [facility] documented in this encounter Plan of Treatment Upcoming Encounters Date Type Department Care Team ([facility] Contact Info) Description 03/09/2026 8:15 AM EST Office Visit [facility] [address] [place] [address] Chelsea Bruno APRN [address] [place] [address] Scheduled Referrals Name Type Priority Associated Diagnoses Orde r Schedule Ambulatory Referral to Allergy Outpatient Referral Routine Environmental and seasonal allergies Eczema, unspecified type Ordered: 03/07/2025 documented as of this encounter Goals Goal Patient Goal Type Associated Problems Recent Progress Patient-Stated? Author Specialty Pharmacy General Goal General On track(04/04/19 10:35 AM EST) Leighton Houston RPH Note: Reduce severity and duration of acute migraine headache by 50% Specialty Pharmacy General Goal General On track(12/03/19 11:29 AM EDT) No [facility] Note: Positive outcome during IVF cycle. documented as of this encounter Procedures Procedure Name Priority Date/Time Associated Diagnosis Comments VITAMIN B12 AND FOLATE Routine 03/07/2025 8:30 AM EST Annual physical exam Morbid obesity with BMI of 60.0-69.9, adult Prediabetes Screening for cardiovascular condition PCOS (polycystic ovarian syndrome) Female fertility problem VITAMIN D,25-HYDROXY Routine 03/07/2025 8:30 AM EST Annual physical exam Morbid obesity with BMI of 60.0-69.9, adult Prediabetes Screening for cardiovascular condition PCOS (polycystic ovarian syndrome) Female fertility problem CBC AND DIFFERENTIAL Routine 03/07/2025 8:30 AM EST Annual physical exam Morbid obesity with BMI of 60.0-69.9, adult Prediabetes Screening for cardiovascular condition PCOS (polycystic ovarian syndrome) Female fertility problem TSH Routine 03/07/2025 8:30 AM EST Annual physical exam Morbid obesity with BMI of 60.0-69.9, adult Prediabetes Screening for cardiovascular condition PCOS (polycystic ovarian syndrome) Female fertility problem T4, FREE Routine 03/07/2025 8:30 AM EST Annual physical exam Morbid obesity with BMI of 60.0-69.9, adult Prediabetes Screening for cardiovascular condition PCOS (polycystic ovarian syndrome) Female fertility problem HEMOGLOBIN A1C Routine 03/07/2025 8:30 AM EST Annual physical exam Morbid obesity with BMI of 60.0-69.9, adult Prediabetes Screening for cardiovascular condition PCOS (polycystic ovarian syndrome) Female fertility problem LIPID PANEL Routine 03/07/2025 8:30 AM EST Annual physical exam Morbid obesity with BMI of 60.0-69.9, adult Prediabetes Screening for cardiovascular condition PCOS (polycystic ovarian syndrome) Female fertility problem COMPREHENSIVE METABOLIC PANEL Routine 03/07/2025 8:30 AM EST Annual physical exam Morbid obesity with BMI of 60.0-69.9, adult Prediabetes Screening for cardiovascular condition PCOS (polycystic ovarian syndrome) Female fertility problem documented in this encounter Results * Vitamin B12 & Folate (03/07/2025 8:30 AM EST) Pathologist [facility] Vitamin B-12 499 211 - 946 pg/mL [facility] Comment:Results may be false ly increased if patient taking Biotin. Folate >20.00 4.78 - 24.20 ng/mL [facility] Comment:Results may be false ly increased if patient taking Biotin. Blood 03/07/2025 8:30 AM EST 03/07/2025 Narrative [facility] ([facility]) - 03/08/2025 3:07 AM EST Performed at: [address] [place] [id number] Crop Farm Helper: Tobias Fry MD, Phone: [phone] Patient Fasting: Y Chelsea Bruno APRN LAB BLOOD ORDERABLES Final R esult [facility] ([facility]) [address] [place] [address], [facility] [address] [place] [address], * Hemoglobin A1c (03/07/2025 8:30 AM EST) Pathologist [facility] Hemoglobin A1C 5.50 4.80 - 5.60 % [facility] Comment: Hemoglobin A1C Ranges: Increased Risk for Diabetes 5.7% to 6.4% Diabetes >= 6.5% Diabetic Goal < 7.0% Blood 03/07/2025 8:30 AM EST 03/07/2025 Narrative [facility] ([facility]) - 03/08/2025 3:07 AM EST Performed at: [address] [place] [address] [id number] Crop Farm Helper: Tobias Fry MD, Phone: [phone] Patient Fasting: Y Chelsea Bruno MATTRESS RENOVATOR LAB BLOOD ORDERABLES Final R esult Performing Organization Address City/State/[facility] Co de Phone Number [facility] ([facility]) [address] [place] [address], [place] [phone] [facility] [address] [place] [address], [place] [phone] * Lipid Panel (03/07/2025 8:30 AM EST) [facility] Total Cholesterol 167 0 - 200 mg/dL [facility] Comment: Cholesterol Reference Ranges (U.S. Department of Health and Human Services ATP III Classifications) Desirable <200 mg/dL Borderline High 200-239 mg/dL High Risk >240 mg/dL Triglyceride Reference Ranges (U.S. Department of Health and Human Services ATP III Classifications) Normal <150 mg/dL Borderline High 150-199 mg/dL High 200-499 mg/dL Very High >500 mg/dL HDL Reference Ranges (U.S. Department of Health and Human Services ATP III Classifications) Low <40 mg/dl (major risk factor for CHD) High >60 mg/dl ('negative' risk factor for CHD) LDL Reference Ranges (U.S. Department of Health and Human Services ATP III Classifications) Optimal <100 mg/dL Near Optimal 100-129 mg/dL Borderline High 130-159 mg/dL High 160-189 mg/dL Very High >189 mg/dL LDL is calculated using the NIH LDL-C calculation. Triglycerides 119 0 - 150 mg/dL [facility] HDL Cholesterol 49 40 - 60 mg/dL [facility] VLDL Cholesterol Triston 21 5 - 40 mg/dL [facility] LDL Chol Calc (NIH) 97 0 - 100 mg/dL [facility] Blood 03/07/2025 8:30 AM EST 03/07/2025 Narrative [facility] ([facility]) - 03/08/2025 3:07 AM EST Performed at: [address] [place] [address] [id number] Crop Farm Helper: Tobias Fry MD, Phone: [phone] Patient Fasting: Y Chelsea Bruno MATTRESS RENOVATOR LAB BLOOD ORDERABLES Final R esult Performing Organization Address City/[facility]/ZIP Co de Phone Number [facility] ([facility]) [address] [place] [address], [facility] [address] [place] [address], * Vitamin D,25-Hydroxy (03/07/2025 8:30 AM EST) Pathologist [facility] 25 Hydroxy, Vitamin D 40.3 30.0 - 100.0 ng/ml [facility] Comment: Reference Range for Total Vitamin D 25(OH) Deficiency <20.0 ng/mL Insufficiency 21-29 ng/mL Sufficiency 30-100 ng/mL Toxicity >100 ng/ml Blood 03/07/2025 8:30 AM EST 03/07/2025 Narrative [facility] ([facility]) - 03/08/2025 3:07 AM EST Performed at: [address] [place] [address] [id number] Crop Farm Helper: Tobias Fry MD, Phone: [phone] Patient Fasting: Y Chelsae Bruno MATTRESS RENOVATOR LAB BLOOD ORDERABLES Final R esult Performing Organization Address City/[facility] Co de Phone Number [facility] ([facility]) [address] [place] [address], [facility] [address] [place] [address], * T4, Free (03/07/2025 8:30 AM EST) Pathologist [facility] Free T4 1.05 0.92 - 1.68 ng/dL [facility] Blood 03/07/2025 8:30 AM EST 03/07/2025 Narrative [facility] ([facility]) - 03/08/2025 3:07 AM EST Performed at: [address] [place] [address] [id number] Crop Farm Helper: Tobias Fry MD, Phone: [phone] Patient Fasting: Y Chelsea Bruno MATTRESS RENOVATOR LAB BLOOD ORDERABLES Final R esult Performing Organization Address [facility]/ZIP Co de Phone Number [facility] ([facility]) [address] [place] [phone], [facility] [address] [place] [address], * TSH (03/07/2025 8:30 AM EST) TSH 1.870 0.270 - 4.200 uIU/mL [facility] Blood 03/07/2025 8:30 AM EST 03/07/2025 Narrative [facility] ([facility]) - 03/08/2025 3:07 AM EST Performed at: [address] [place] [address] [id number] Crop Farm Helper: Tobias Fry MD, Phone: [phone] Patient Fasting: Y Chelsea Bruno APRN LAB BLOOD ORDERABLES [facility] Performing Organization Address City/[facility]/ZIP Co de Phone Number [facility] ([facility]) [address] [id number], [facility] [address] [place] [address], * Comprehensive metabolic panel (03/07/2025 8:30 AM EST) Glucose 82 65 - 99 mg/dL [facility] BUN 8.0 6.0 - 20.0 mg/dL [facility] Creatinine 0.78 0.57 - 1.00 mg/dL [facility] EGFR Result 104.3 >60.0 mL/min/1.7 3 [facility] Comment: GFR Categories in Chronic Kidney Disease (CKD) GFR Category GFR (mL/min/1.73) Interpretation G1 90 or greater Normal or high (1) G2 60-89 Mild decrease (1) G3a 45-59 Mild to moderate decrease G3b 30-44 Moderate to severe decrease G4 15-29 Severe decrease G5 14 or less Kidney failure (1)In the absence of evidence of kidney disease, neither GFR category G1 or G2 fulfill the criteria for CKD. eGFR calculation 2020 CKD-EPI creatinine equation, which does not include race as a factor BUN/Creatinine Ratio 10.3 7.0 - 25.0 [facility] Sodium 141 136 - 145 mmol/L [facility] Potassium 4.4 3.5 - 5.2 mmol/L [facility] Chloride 104 98 - 107 mmol/L [facility] Total CO2 24.9 22.0 - 29.0 mmol/L [facility] Calcium 9.2 8.6 - 10.5 mg/dL [facility] Total Protein 7.3 6.0 - 8.5 g/dL [facility] Albumin 4.2 3.5 - 5.2 g/dL [facility] Globulin 3.1 gm/dL [facility] A/G Ratio 1.4 g/dL [facility] Total Bilirubin 0.2 0.0 - 1.2 mg/dL [facility] Alkaline Phosphatase 68 39 - 117 U/L [facility] AST (SGOT) 19 1 - 32 U/L [facility] ALT (SGPT) 24 1 - 33 U/L [facility] Blood 03/07/2025 8:30 AM EST 03/07/2025 Narrative [facility] ([facility]) - 03/08/2025 3:07 AM EST Performed at: [address] [place] [address] [id number] Crop Farm Helper: Tobias Fry MD, Phone: [phone] Patient Fasting: Y Chelsea Bruno APRN LAB BLOOD ORDERABLES Final R esult [facility] [facility] ([facility]) [address] [place] [address], [place] [phone] [facility] [address] [place] [address], [place] [phone] * (ABNORMAL) CBC & Differential (03/07/2025 8:30 AM EST) [facility] WBC 12.55(H) 3.40 - 10.80 10*3/mm3 [facility] RBC 5.07 3.77 - 5.28 10*6/mm3 [facility] Hemoglobin 12.8 12.0 - 15.9 g/dL [facility] Hematocrit 40.8 34.0 - 46.6 % [facility] MCV 80.5 79.0 - 97.0 fL [facility] MCH 25.2(L) 26.6 - 33.0 pg [facility] MCHC 31.4(L) 31.5 - 35.7 g/dL [facility] RDW 14.6 12.3 - 15.4 % [facility] Platelets 356 140 - 450 10*3/mm3 [facility] Neutrophil Rel % 70.7 42.7 - 76.0 % [facility] Lymphocyte Rel % 18.8(L) 19.6 - 45.3 % [facility] Monocyte Rel % 8.0 5.0 - 12.0 % [facility] Eosinophil Rel % 1.5 0.3 - 6.2 % [facility] Basophil Rel % 0.5 0.0 - 1.5 % [facility] Neutrophils Absolute 8.87(H) 1.70 - 7.00 10*3/mm3 [facility] Lymphocytes Absolute 2.36 0.70 - 3.10 10*3/mm3 [facility] Monocytes Absolute 1.01(H) 0.10 - 0.90 10*3/mm3 [facility] Eosinophils Absolute 0.19 0.00 - 0.40 10*3/mm3 [facility] Basophils Absolute 0.06 0.00 - 0.20 10*3/mm3 [facility] Immature Granulocyte Rel % 0.5 0.0 - 0.5 % [facility] Immature Grans Absolute 0.06(H) 0.00 - 0.05 10*3/mm3 [facility] nRBC 0.0 0.0 - 0.2 /100 WBC [facility] Blood 03/07/2025 8:30 AM EST 03/07/2025 Narrative [facility] ([facility]) - 03/08/2025 3:07 AM EST Performed at: [address] - [address] [id number] Crop Farm Helper: Tobias Fry MD, Phone: [phone] Patient Fasting: Y us Chelsea Bruno APRN LAB BLOOD ORDERABLES Final R esult [facility] ([facility]) [address] [place] [address], [place] [phone] [facility] [address] [place] [address], [place] [phone] documented in this encounter Visit Diagnoses Diagnosis Annual physical exam- Primary Routine general medical examination at a health care facility Morbid obesity with BMI of 60.0-69.9, adult Prediabetes Other abnormal glucose Screening for cardiovascular condition Screening for other and unspecified cardiovascular conditions PCOS (polycystic ovarian syndrome) Polycystic ovaries Female fertility problem Environmental and seasonal allergies Eczema, unspecified type documented in this encounter Care Teams Isotope Technician Relationship Specialty Start Date End Date Chelsea Bruno APRN [address] [place] [address] PCP - General Nurse Practitioner 10/18/23 documented as of this encounter
[2025-03-17 07:20] VITALS: BP 150/72; PULSE 96; RESP 18; TEMP 36.8; O2SAT 98; BMI 62.9
--- NOTE | 2025-03-17 07:24 | HMH.EDGENADL ---
Discharge Plan Disposition Patient Disposition: Home, Self-Care Prescriptions Prescriptions: New metoclopramide HCl 10 mg tablet 10 mg PO Q6H PRN (Reason: nausea and vomiting) 7 Days Qty: 28 0RF No Action dextroamphetamine-amphetamine 20 mg capsule,extended release 24hr 40 mg PO DAILY Wegovy 1.7 mg/0.75 mL pen injector 1.7 mg SQ WEEKLY ondansetron 4 mg tablet,disintegrating 4 mg PO Q6H PRN (Reason: nausea and vomiting) 4 Days Qty: 16 0RF benzonatate 100 mg capsule 100 mg PO TID PRN (Reason: cough) 5 Days Qty: 20 0RF ondansetron 4 mg tablet,disintegrating 4 mg PO Q6H PRN (Reason: nausea and vomiting) 5 Days Qty: 20 0RF Referrals Follow up/Referrals: Chelsea Bruno APRN [Primary Care Provider, Medical] - See instructions Activity Restrictions/Add. Instructions Additional Instructions/Restrictions: Your symptoms today are most likely secondary to GLP-1 induced gastroparesis. I would recommend that you return back to the previous dose that you are on. Additionally I would recommend high-frequency low-volume meals that are low in fat low in fiber. I have prescribed Reglan for you which should be helpful with gastric emptying if your Zofran is not helping. As discussed you do not want a be on this medication long-term but in the short-term it is of no concern. Clinical Impressions Clinical Impression: Nausea & vomiting, Medication side effect Instructions Patient Instructions: DI for Diarrhea and Traveler's Diarrhea in Adults, DI for Diarrhea and Traveler's Diarrhea in Children, DI for Nausea in Adults, DI for Nausea in Children Print Language Print Language: Italian Discharge ED Provider: Ankur Yi General Adult HPI General Chief complaint: Nausea/Vomiting/Diarrhea Stated complaint: vomiting x 3 days Time Seen by Provider: 03/17/25 07:23 History of Present Illness HPI narrative: Patient is a 29-year-old female with a history of PCOS undergoing IVF and is on Ozempic recently increased the dose of her Ozempic 7 days ago and subsequently had 3 days of persistent nausea and vomiting. She is concerned that she has gastroparesis secondary to that medication. Denies any pain denies any diarrhea denies any fevers chills or other infectious symptoms. Related Data Home Medications ?Medication ?Instructions ?Recorded ?Confirmed dextroamphetamine-amphetamine ER 40 mg PO DAILY 10/02/23 10/02/23 20 mg 24hr capsule,extend release semaglutide (weight loss) 1.7 1.7 mg SQ WEEKLY 10/02/23 10/02/23 mg/0.75 mL subcutaneous pen injector (Wegovy) Previous Rx's ?Medication ?Instructions ?Recorded ondansetron 4 mg disintegrating 4 mg PO Q6H PRN nausea and 10/02/23 tablet vomiting 4 days #16 tabs benzonatate 100 mg capsule 100 mg PO TID PRN cough 5 days #20 02/22/25 caps ondansetron 4 mg disintegrating 4 mg PO Q6H PRN nausea and 02/22/25 tablet vomiting 5 days #20 tabs metoclopramide HCl 10 mg tablet 10 mg PO Q6H PRN nausea and 03/17/25 vomiting 7 days #28 tabs Allergies Allergy/AdvReac Type Severity Reaction Status Date / Time No Known Allergies Allergy Verified 10/02/23 09:37 [facility] Disclaimer: The information contained in this section may have been updated after the patient was seen, as this information can be updated by other users. Social History Smoking Status: Never smoker alcohol intake: never current occupational status: employed Travel in the last 8 weeks?: None Have you lived/traveled outside US in past 30 days?: No Contact w/someone who lives/traveled outside US past 30 days?: No Exposure to someone with infectious disease in past 14 days?: No Do you have a fever (greater than 100.4 F or 38 C)?: No Have you tested positive for COVID-19?: No Exposed to someone with COVID-19 in past 14 days?: No Do you have a sore throat?: No Do you have a cough?: No Do you have any weakness?: No Do you have any diarrhea?: No Are you experiencing any unusual bleeding?: No Do you have any muscle aches/pain?: No Do you have any abdominal pain?: No Are you experiencing loss of taste or smell?: No ROS Obtained: Yes All systems reviewed & no additional complaints except as documented Physical Exam General General appearance: alert and in no apparent distress Respiratory Respiratory exam: Present normal lung sounds bilaterally Cardiovascular Cardiovascular exam: Present regular rate Abdominal Exam Abdominal exam: Present soft; Absent distention or tenderness Neurological Exam Neurological exam: Present alert and oriented X3 Medical Decision Making Medical Records Screening: Per USPSTF and CDC recommendations, given the prevalence of disease in our region, it is our hospital?s policy to screen for HIV and viral Hepatitis for all patients aged 18 and over and those with ongoing risk factors. Drew Inquiry Pt receiving controlled substance: No Vital Signs: 03/17/25 07:20 03/17/25 07:20 03/17/25 07:32 Temperature 98.2 F 98.2 F Temperature Source Oral Oral Pulse Rate 96 H 75 Pulse Rate [Right] 96 H Respiratory Rate 18 18 16 Blood Pressure 150/72 H 113/71 Blood Pressure [Right Arm] 150/72 H Blood Pressure Mean 87 Blood Pressure Mean [Right Arm] 98 Blood Pressure Source Automatic Cuff Blood Pressure Source [Right Arm] Automatic Cuff Blood Pressure Position Supine Blood Pressure Position [Right Arm] Supine 02 Sat by Pulse Oximetry 98 98 98 Oxygen Delivery Method Room Air Room Air 03/17/25 07:39 03/17/25 08:00 Temperature Temperature Source Pulse Rate 68 Pulse Rate [Right] Respiratory Rate Blood Pressure 134/71 Blood Pressure [Right Arm] Blood Pressure Mean Blood Pressure Mean [Right Arm] Blood Pressure Source Blood Pressure Source [Right Arm] Blood Pressure Position Blood Pressure Position [Right Arm] 02 Sat by Pulse Oximetry 98 98 Oxygen Delivery Method Room Air Room Air Lab Data Lab results reviewed: Yes I reviewed the patient's lab results. Lab Results 03/17/25 07:30: WBC 10.5, RBC 4.92, Hgb 12.2, Hct 39.4, MCV 80.1 L, MCH 24.8 L, MCHC 31.0 L, RDW 16.0, Plt Count 350, MPV 10.5 H, Neut % (Auto) 62.0, Lymph % (Auto) 26.4, [place] % (Auto) 8.6, Eos % (Auto) 2.2, Baso % (Auto) 0.5, Neut # (Auto) 6.5, Lymph # (Auto) 2.8, [place] # (Auto) 0.9, Eos # (Auto) 0.2, Baso # (Auto) 0.1, Sodium 138, Potassium 3.5, Chloride 105, Carbon Dioxide 26, Anion Gap 10.5, BUN 9, Creatinine 0.90, Estimated Creat Clear 85, Estimated GFR 73, Est GFR ( Amer) 88, Glucose 107 H, Calcium 9.0, Total Bilirubin 0.4, AST 31, ALT 33, Alkaline Phosphatase 70, Total Protein 7.7, Albumin 4.2, Globulin 3.5 H, Albumin/Globulin Ratio 1.2, Lipase 116, Serum HCG, Qual Negative 03/17/25 07:30 03/17/25 07:30 Orders (Tests/Meds): ED MEDICATIONS Discontinued Medications Generic Name Dose Route Start Last Admin Trade Name Freq PRN Reason Stop Dose Admin Lactated Ringer's 1,000 mls @ 999 mls/hr 03/17/25 07:30 03/17/25 07:34 Lactated Ringer's 1000 Ml Bag IV 03/17/25 08:30 999 mls/hr .Q1H1M CB Administration Ondansetron HCl 4 mg 03/17/25 07:23 03/17/25 07:35 Ondansetron 4mg/2ml Vial IV 03/17/25 07:24 4 mg ONCE ONE Administration ORDERS Category Date Time Status CBC w/Auto Diff [Complete Blood Count Auto Diff] Stat Lab 03/17/25 07:30 Completed CMP [Comprehensive Metabolic Panel] Stat Lab 03/17/25 07:30 Completed HCG Qualitative, Serum Stat Lab 03/17/25 07:30 Completed Lipase Stat Lab 03/17/25 07:30 Completed Medical Decision Narrative: Well-appearing 29-year-old female with benign abdominal exam presents today with 3 days of nausea and vomiting after an increased dose of her Ozempic. Her symptoms are likely secondary to gastroparesis associated with the Ozempic. Will initiate IV fluids and Zofran and check basic labs and reassess. With abdominal exam being benign and not concerned about bowel obstruction or surgical pathology. She also has no other infectious symptoms to suggest that this is likely viral in nature. Reassessment 8:33 AM patient feeling much better tolerating p.o. Will prescribe Reglan in addition to Zofran that she has at home. This is most likely secondary to her GLP-1 she has been advised to go back to the previous dose that she was on to have high-frequency low-volume meals that are low in fiber low in fat. She understands this and was discharged in stable improved condition. Return precautions emphasized. Critical Care Critical Care Time Critical Care Time: No
--- OUTSIDE RECORDS SUMMARY | 2025-03-17 07:25 | XMS_ITS | Encounter Summary ---
Author Organization Healthcare Address [address] [place] [address] Care Team Providers Care Tools Developer Name Role Phone Deya Hidalgo MD Primary Care Provider + Chelsea Bruno APRN Primary Care Provider [phone] Reason for Visit * Reason Onset Date Comments Med Refill 11/24/2021 Encounter Details Date Type Department Care Team (Late st Contact Info) Description 11/24/2021 Refill [facility] [address] [place] [address] Vaishnavi Leung MD [address] [place] [address] Prediabetes; PCOS (polycystic ovarian syndrome) [...] documented as of this encounter Care Teams Tools Developer Relationship Specialty Start Date End Date Deya Hidalgo MD [address] [facility] [address] [place] [id number] PCP - General Family Medicine 08/19/21 09/15/24 Chelsea Bruno APRN [address] [place] [address] PCP - General 11/13/24 documented as of this encounter
--- OUTSIDE RECORDS SUMMARY | 2025-03-17 07:26 | XMS_ITS | Clinical Summary ---
Author Organization [facility] Address [address] [place] [address] Care Team Providers Care Home Improvement Advisor Name Role Phone KianaChelsea Rachel EDMONDS Primary Care Provider [phone] Allergies Active Allergy Reactions Criticality Noted Date [...] 3 5 2:18 PM EST 025 Active Additional Information Patient not taking.Reported on 03/07/2025 famotidine (Pepcid) 20 MG tabletIndications :Gastroesophageal reflux disease without esophagitis Take 1 tablet by mouth 2 (Two) Times a Day. 60 tablet 5 4:31 PM EDT 025 Active Omegaven 10 GM/100ML emulsion Infuse 10 grams intravenously per protocol Active brompheniramine-p seudoephedrine-DM 30-2-10 MG/5ML syrupIndications: Acute cough,Upper respiratory tract infection, unspecified type Take 5 mL by mouth 4 (Four) Times a Day As Needed for Congestion, Cough or Allergies. 118 mL 025 Active Additional Information Patient not taking.Reported on 03/07/2025 albuterol sulfate HFA 108 (90 Base) MCG/ACT [...] 025 2025 Active Needle, Disp, (BD Disp [place]) 18G X 1-03/21 misc Use 1 Needle with Progesterone in Oil as directed Daily. 30 each 2 5 2:18 PM EST 025 Active Syringe/Needle, Disp, (B-D 3CC LUER-BLANCA SYR 70HN1-5/2) 23G X 1-1/2 3 ML misc Use to inject Progesterone in Oil as directed Daily. 30 each 2 5 2:18 PM EST 025 Active busPIRone (BUSPAR) 10 MG tablet Take 1 tablet by mouth 2 (Two) Times a Day for anxiety. 60 tablet 2 5 8:26 AM EST 025 Active buPROPion XL (Wellbutrin XL) 150 MG 24 hr tablet Take 1 tablet by mouth Every Morning for depression. 30 tablet 2 5 1:39 PM EST 025 Active ondansetron ODT (ZOFRAN-ODT) 4 MG disintegrating tabletIndications :Nausea Place 1 tablet on the tongue Every 12 (Twelve) Hours As Needed for Nausea. 30 tablet 025 Active lisdexamfetamine (Vyvanse) 70 MG capsule Take 1 capsule by mouth Every Morning 30 capsule 5 3:58 PM EST 025 2024 Discontinue d(External Interface Message) Active Problems Problem Noted Date Diagnosed Date Female infertility 11/12/2024 Heartburn 10/25/2022 Overview (10/25/2022): episodic. PRN tums; No hx of EGD or h pylori GIFTY (iron deficiency anemia) 10/25/2022 Palpitations 10/25/2022 Prediabetes 10/25/2022 PCOS (polycystic ovarian syndrome) 10/25/2022 Annual GRAIN THRESHER exam 10/02/2022 Overview (10/04/2022): SCREENING TESTS Year 2018 2019 2020 2021 2022 2023 2024 2025 2026 2027 [...] Encounters Date Type Department Care Team Description 03/14/2025 Results Follow-Up [facility] [address] [place] [address] Chelsea Bruno APRN 03/07/2025 8:15 AM EST Office Visit [facility] [address] [place] [address] Chelsea Bruno, ONCOLOGY RN Annual physical exam (Primary Dx); Morbid obesity with BMI of 60.0-69.9, adult; Prediabetes; Screening for cardiovascular condition; PCOS (polycystic ovarian syndrome); Female fertility problem; Environmental and seasonal allergies; Eczema, unspecified type 03/07/2025 Travel 02/06/2025 Patient rounding ([place] only) [facility] [address] [facility] [address] [place] [address] Mariya Cleary, PCT 02/05/2025 9:09 AM EST - 02/05/2025 10:11 AM EST Hospital Encounter [facility] [address] [place] [address] Mariya Gay APRN Acute cough (Primary Dx); Upper respiratory tract infection, unspecified type Discharge Disposition: Home or Self Care 02/05/2025 Travel 01/05/2025 Refill [facility] [address] [place] [address] Chelsea Bruno, ONCOLOGY RN Gastroesophageal reflux disease without esophagitis from Last 3 Months Immunizations Immunization Administration Dates Next Due COVID-19 (MODERNA) 1st,2nd,3 rd Dose Monovalent 01/26/2021,05/01/2020,04/03/2020 DTaP 11/14/1997, 6,05/10/1994,02/24,01/03/1994 Fluzone >6mos 01/12/2024 Hepatitis B Adult/Adolescent IM 02/25/1996,08/03,01/03/1994 Hib (PRP-OMP) 06/22/1995, 5,02/24/1994,01/03 IPV 11/14/1997, 6,02/24/1994,01/03 Influenza Injectable Mdck Pf Quad 02/01/2023 Influenza, Unspecified 02/11/2025,2018,01/01/2018,06/07,12/09/2008,02/22/2008,02/28/2007 MMR 11/14/1997,02/22/1995 Meningococcal MCV4P (Menactra) 12/09/2008 PPD Test 04/02/2013 Td (TDVAX) 10/15/2004 Tdap 06/07/2017,12/09/2008 Varicella 12/09/2008,11/14/1997 Family History Medical History Relation Name Comments Alcohol abuse Father Marc Depression Father Marc Heart attack Father Marc Heart disease Father Marc Hyperlipidemia Father Marc Hypertension Father Marc Liver disease Father Marc Vision loss Father Marc Cancer Maternal Grandfather Blair Stroke Maternal Grandmother Sary Depression Mother Mariya Diabetes Mother Mariya Miscarriages / Stillbirths Mother Mariya Stroke Mother Mariya Relation Name Status Comments Father Marc Alive Maternal Grandfather Blair Alive Maternal Grandmother Sary Mother Mariya Alive Paternal [...] Mass Index 65.21 03/07/2025 8:07 AM EST Plan of Treatment Upcoming Encounters Date Type Department Care Team (Late st Contact Info) Description 03/09/2026 8:15 AM EST Office Visit [facility] [address] [facility] [place] [address] Chelsea Bruno, ONCOLOGY RN [address] [place] [address] Health Maintenance Due Date Last Done Comments Pneumococcal Vaccine 0-49 (1 of 2 - PCV) 2012 Annual Gynecologic Pelvic an d Breast Exam 10/05/2023 10/03/2022 PAP SMEAR 10/03/2025 10/03/2022 ANNUAL PHYSICAL 03/07/2026 03/07/2025, 10/18/2023 TDAP/TD VACCINES (4 - Td or Tdap) 06/08/2027 06/07/2017, 12/09/2008, 10/15/2004 HEPATITIS C SCREENING Completed 06/13/2013 INFLUENZA VACCINE Completed 02/11/2025, , 02/01/2023, Additional history exists Goals Goal Patient Goal Type Associated Problems [...] Procedure Name Priority Date/Time Associated Diagnosis Comments CBC AND DIFFERENTIAL Routine 03/07/2025 8:30 AM EST Annual physical exam Morbid obesity with BMI of 60.0-69.9, adult Prediabetes Screening for cardiovascular condition PCOS (polycystic ovarian syndrome) Female fertility problem VITAMIN B12 AND FOLATE Routine 03/07/2025 8:30 [...] PCOS (polycystic ovarian syndrome) Female fertility problem COVID-19 + FLU A&B AG, VERITOR STAT 02/05/2025 9:41 AM EST LIQUID-BASED PAP SMEAR WITH HPV GENOTYPING IF ASCUS, [facility] ([facility]) Routine 10/03/2022 9:51 AM EDT Annual GRAIN THRESHER exam HEPATITIS C ANTIBODY Routine 06/13/2013 1:06 PM EDT from Last 3 Months or Most Recently Relevant to Health Maintenance Results * Vitamin B12 & Folate (03/07/2025 8:30 AM EST) Vitamin B-12 499 211 - 946 pg/mL [facility] Comment:Results may be false ly increased if patient taking Biotin. Folate >20.00 4.78 - 24.20 ng/mL [facility] Comment:Results may be false ly increased if patient taking Biotin. Blood 03/07/2025 8:30 AM EST 03/07/2025 Narrative [facility] ([facility]) - 03/08/2025 3:07 AM EST Performed at: [address] [place] [address] [address] [place], [place] [id number] Superintendent Building: Tobias Fry MD, Phone: [phone] Patient Fasting: Y Chelsea Bruno APRN LAB BLOOD ORDERABLES Final R esult Performing Organization Address City/[facility]/ZIP Co de Phone Number [facility] (AMBULATORY) [address] [place] [address], [facility] [address] [place] [address], * Vitamin D,25-Hydroxy (03/07/2025 8:30 AM EST) Pathologist [facility] 25 Hydroxy, Vitamin D 40.3 30.0 - 100.0 ng/ml [facility] Comment: Reference Range for Total Vitamin D 25(OH) Deficiency <20.0 ng/mL Insufficiency 21-29 ng/mL Sufficiency 30-100 ng/mL Toxicity >100 ng/ml Blood 03/07/2025 8:30 AM EST 03/07/2025 Narrative [facility] - 03/08/2025 3:07 AM EST Performed at: [address] [place] [address] [address] [place], [place] [id number] Superintendent Building: Tobias Fry MD, Phone: [phone] Patient Fasting: Y Chelsea Bruno ONCOLOGY RN LAB BLOOD ORDERABLES Final R esult Performing Organization Address City/[facility]/ZIP Co de Phone Number [facility] [address] [place] [address], [place] [phone] [facility] [address] [place] [address], * (ABNORMAL) CBC & Differential (03/07/2025 8:30 AM EST) Pathologist [facility] WBC 12.55(H) 3.40 - 10.80 10*3/mm3 [facility] [...] 3:07 AM EST Performed at: 01 - [address] [id number] Superintendent Building: Tobias Fry MD, Phone: [phone] Patient Fasting: Y us Chelsea Bruno APRN LAB BLOOD ORDERABLES Final R esult Performing Organization Address [facility] Co de Phone Number [facility] ([facility]) [address] [place] [address], [facility] [address] [place] [address], [place] [phone] * TSH (03/07/2025 8:30 AM EST) TSH 1.870 0.270 - 4.200 uIU/mL [facility] Blood 03/07/2025 8:30 AM EST 03/07/2025 Narrative [facility] ([facility]) - 03/08/2025 3:07 AM EST Performed at: [address] [place] [id number] Superintendent Building: Tobias Fry MD, Phone: [phone] Patient Fasting: Y Chelsea Bruno APRN LAB BLOOD ORDERABLES Final R esult Performing Organization Address [facility] Co de Phone Number [facility] ([facility]) [address] [place] [address], [facility] [address] [place] [address], * T4, Free (03/07/2025 8:30 AM EST) Free T4 1.05 0.92 - 1.68 ng/dL [facility] Blood 03/07/2025 8:30 AM EST 03/07/2025 Narrative [facility] ([facility]) - 03/08/2025 3:07 AM EST Performed at: [address] [place] [address] [address] [place], [place] [id number] Superintendent Building: Tobias Fry MD, Phone: [phone] Patient Fasting: Y Chelsea Bruno ONCOLOGY RN LAB BLOOD ORDERABLES Final R esult Performing Organization Address City/[facility]/ZIP Co de Phone Number [facility] ([facility]) [address] [place] [address], [facility] [address] [place] [address], * Hemoglobin A1c (03/07/2025 8:30 AM EST) Hemoglobin A1C 5.50 4.80 - 5.60 % [facility] Comment: Hemoglobin A1C Ranges: Increased Risk for Diabetes 5.7% to 6.4% Diabetes >= 6.5% Diabetic Goal < 7.0% Blood 03/07/2025 8:30 AM EST 03/07/2025 Narrative [facility] ([facility]) - 03/08/2025 3:07 AM EST Performed at: [address] [place] [id number] Superintendent Building: Tobias Fry MD, Phone: [phone] Patient Fasting: Y Chelsea Bruno APRN LAB BLOOD ORDERABLES Final R esult [facility] ([facility]) [address] [place] [address], [facility] [address] [place] [address], * Lipid Panel (03/07/2025 8:30 AM EST) Pathologist [facility] Total Cholesterol 167 0 - 200 mg/dL [...] 03/08/2025 3:07 AM EST Performed at: [address] [id number] Superintendent Building: Tobias Fry MD, Phone: [phone] Patient Fasting: Y Chelsea Bruno APRN LAB BLOOD ORDERABLES Final R esult [facility] (AMBULATORY) [address] [place] [id number], [facility] [address] [place] [address], * Comprehensive metabolic panel (03/07/2025 8:30 AM EST) [facility] Glucose 82 65 - 99 mg/dL [facility] [...] - 03/08/2025 3:07 AM EST Performed at: [address] [place] [id number] Superintendent Building: Tobias Fry MD, Phone: [phone] Patient Fasting: Y Chelsea Bruno APRN LAB BLOOD ORDERABLES Final R esult [facility] (AMBULATORY) [address] [place] [address], [facility] [address] [place] [address], * Covid-19 + Flu A&B AG, Veritor (02/05/2025 9:41 AM EST) COVID19 Not Detected Not Detected - Ref. Range Influenza A Antigen KENNEDI Not Detected Not Detected Influenza B Antigen KENNEDI Not Detected Not Detected Internal Control Passed Passed Lot Number [id number] Expiration Date 05/29/2025 Swab 02/05/2025 9:41 AM EST Mariya Gay ONCOLOGY RN POINT OF CARE TEST ORDERA BLES Final Result * LIQUID-BASED PAP SMEAR WITH HPV GENOTYPING IF ASCUS ([facility]) (10/03/2022 9:51 AM EDT) Reference Lab Report [facility] [address] [place] [address] or [phone] Mike Castillo M.D., Communications Instructor PATIENT NAME LABORATORY NO. ROBBIE KUMAR [id number] AGE SEX SSN CLIENT REF # SHANI MEANS MD 28 1995 F [id number] SHANI MEANS MD REQUESTING M.Jennifer. ATTENDING M.D. COPY TO. [address] [facility] [address] [place] [address] DATE COLLECTED DATE RECEIVED DATE REPORTED 10/03/2022 [...] SLIDES: 1 CLINICAL HISTORY: Well woman exam THERAPEUTIC RECREATION SPECIALIST: BRODIE BERG (ASCP) CPT CODES: 00899 10/04/2022 6:43 AM EDT [facility] ThinPrep Vial Collection / Unknown 10/03/2022 9:51 AM EDT 10/03/2022 9:51 AM EDT Shani Means MD PATHOLOGY/CYTOLOGY ORDERAB LES Final Result [facility]
[address] [place] [address], * Hepatitis C antibody (06/13/2013 1:06 PM EDT) Hep C Virus Ab NonReactive NONREACTIVE B [facility] Comment: DF by IF @ 06/13/2013 [...] specimen (specimen) 06/13/2013 1:06 PM EDT Narrative [facility] - 06/13/2013 4:08 PM EDT Specimen Type: Blood Arlene PICKARD LAB BLOOD ORDERABLES Final Result [facility] [address] [place] [address], from Last 3 Months or Most Recently Relevant to Health Maintenance Insurance Care Teams Home Improvement Advisor Relationship Specialty Start Date End Date Chelsea Bruno APRN [facility] [place] [address] PCP - General Nurse Practitioner 10/18/23
--- OUTSIDE RECORDS SUMMARY | 2025-03-17 07:26 | XMS_ITS | Encounter Summary ---
Author Organization [facility] Address [address] [place] [address] Care Team Providers Care Relay Repairer Name Role Phone Chelsea Bruno GREY Primary Care Provider [phone] Encounter Details Date Type Department Care Team (Late st Contact Info) Description 02/06/2025 Patient rounding ([facility] only) [facility] [address] [facility] [address] [place] [address] Mariya Cleary, DEVORA Social History [...] Description 03/09/2026 8:15 AM EST Office Visit [facility] [address] [place] [address] Chelsea Bruno, BOAT PATCHER P[employer]IC [address] [place] [address] documented as of this encounter [...] on filedocumented in this encounter Care Teams Relay Repairer Relationship Specialty Start Date End Date Chelsea Bruno, GREY [address] [place] [address] PCP - General Nurse Practitioner 10/18/23 documented as of this encounter
--- OUTSIDE RECORDS SUMMARY | 2025-03-17 07:26 | XMS_ITS | Encounter Summary ---
[facility] Address [address] [place] [address] Care Team Providers Care Asphalt Paving Superintendent Name Role Phone Chelsea Bruno APRN Primary Care Provider [phone] Encounter Details Date Type Department Care Team [...] Description 03/09/2026 8:15 AM EST Office Visit [facility] [address] [place] [address] Chelsea Bruno APRN [address] [facility] [place] [address] documented as of this encounter [...] documented as of this encounter Care Teams Asphalt Paving Superintendent Relationship Specialty Start Date End Date Chelsea Bruno APRN [address] [place] [address] PCP - General Nurse Practitioner 10/18/23 documented as of this encounter
--- OUTSIDE RECORDS SUMMARY | 2025-03-17 07:26 | XMS_ITS | Clinical Summary ---
Author Organization [facility] Address [address] [place] [address] Care Team Providers Care Offset Lithographic Press Setter Name Role Phone Chelsea Bruno APRN Primary [...] Last Done Comments [facility]-Hepatitis C Screening 1993 [facility]-/Child/Adol SDOH Screenings 1993 [facility]- SDOH Screenings 11/08/2011 [facility]-Adult SDOH Screenings 11/08/2011 [facility]-Pneumococcal Vaccine: Pediatrics (0 to 5 Years) and At-Risk Patients (6 to 49 Years) (1 of 2 - PCV) 2012 [facility]-Zoster Vaccines (1 of 2) 2012 12/09/2008, 11/14/1997 [facility]-HPV/Cotest 11/08/2023 [id number] Vaccine ( season) 2024 01/26/2021, 05/01/2020, 04/03/2020 [facility]-Influenza Vaccine (#1) 11/18/202401/11, 01/27/2019, 01/01/2018, Additional history exists [facility]-Cervical Cancer Screening 10/03/2025 [facility]-Pap Smear 10/03/2025 10/03/2022 [facility]-Depression Screening 11/13/2025 11/13/2024, 10/19 [facility]-Diabetes: Hemoglobin A1C 11/13/2025 11/13/2024, 10/18/2023, 10/25/2022, [...] Completed 025, 06/18/2024, 06/07/2024, Additional history exists HPV Vaccines (No Doses Required) Completed [facility]-Hepatitis A Vaccines Aged Out No longer [...] 5.7(H) <5.7 % 11/13/2024 3:01 PM EDT [facility] Blood Venous blood specimen / Unknown Venipuncture / Unknown 11/13/2024 9:50 AM EDT 11/13/2024 9:50 AM EDT Narrative [facility] - 11/13/2024 3:01 PM EDT HA1C Interpretive Data: Diagnosis of Diabetes: Diabetic > or = 6.5% Pre-diabetic 5.7 to 6.4% Non-diabetic < or = 5.6% Glycemic Targets for Type I and Type II Diabetics: Non- Adults <7.0% Adults <6.0% Children and Adolescents <7.5% Source: [place] [employer]. Standards of medical care in diabetes,2017. Diabetes Care.2017:40 (suppl 1):S1-S135. us Jono Montesinos MD LAB BLOOD ORDERABLES Chiqui l Result [facility] [address] [place] [address] * HIV 1 & 2 Antibody/Antigen Screen (09/28/2018 2:51 PM EDT) Pathologist [facility] HIV 1 Result NONREACTIVE Screening for HIV 1 and 2 antibodies is NONREACTIVE. No confirmatory testing is required. [facility] 09/28/2018 2:51 PM EDT 09/28/2018 3:56 PM EDT us Vaishnavi Leung MD LAB BLOOD ORDERABLES Final Result [facility] from Last 3 Months or Most Recently Relevant to Health Maintenance [place] [address] [facility] Care Teams Offset Lithographic Press Setter Relationship Specialty Start Date End Date Chelsea Bruno APRN [address] [place] [address] PCP - General 11/13/24
--- OUTSIDE RECORDS SUMMARY | 2025-03-17 07:26 | XMS_ITS | Encounter Summary ---
[facility] [address] [place] [address] Care Team Providers Care Planning Assistant Name Role Phone Chelsea Bruno APRN Primary Care Provider Encounter Details Date Type Department Care Team (Latest Contact Info) Description 03/07/2025 Travel Social History Tobacco Use Types Packs/Day [...] Description 03/09/2026 8:15 AM EST Office Visit [facility] [address] [place] [address] Chelsea Bruno APRN 210 [facility] [place] [address] documented as of this encounter Goals Goal Patient Goal Type Associated Problems Recent Progress Patient-Stated? Author Specialty Pharmacy General Goal General On track(04/04/19 10:35 AM EST) No Leighton Oshea Yesy Note: Reduce severity and duration of acute migraine headache by 50% Specialty Pharmacy General Goal General On track(12/03/19 11:29 AM EDT) No Rola Crawford RPH Note: Positive outcome during IVF cycle. documented as of this encounter Visit Diagnoses Not on filedocumented in this encounter Care Teams Planning Assistant Relationship Specialty Start Date End Date Chelsea Bruno APRN [address] [place] [address] PCP - General Nurse Practitioner 10/18/23 documented as of this encounter
--- OUTSIDE RECORDS SUMMARY | 2025-03-17 07:26 | XMS_ITS | Encounter Summary ---
[facility] [address] [place] [address] Care Team Providers Care Bufferer Name Role Phone Chelsea Bruno APRN Primary Care Provider [phone] Encounter Details Date Type Department Care Team (Late st Contact Info) Description 03/14/2025 Results Follow-Up [facility] [address] [place] [address] Chelsea Bruno APRN [address] [place] [address] Social History Tobacco Use Types [...] Description 03/09/2026 8:15 AM EST Office Visit [facility] [address] [phone] Chelsea Bruno APRN [address] [address] documented as of this encounter Goals Goal Patient Goal Type Associated Problems Recent Progress Patient-Stated? Author Specialty Pharmacy General Goal General On track(04/04/19 10:35 AM EST) No Leighton Oshea RP Note: Reduce severity and duration of acute migraine headache by 50% Specialty Pharmacy General Goal General On track(12/03/19 11:29 AM EDT) No Rola Crawford RPH Note: Positive outcome during IVF cycle. documented as of this encounter Visit Diagnoses Diagnosis Nausea- Primary Nausea alone documented in this encounter Care Teams Bufferer Relationship Specialty Start Date End Date Chelsea Bruno, GREY [address] [address] PCP - General Nurse Practitioner 10/18/23 documented as of this encounter
--- OUTSIDE RECORDS SUMMARY | 2025-03-17 07:26 | XMS_ITS | Encounter Summary ---
[facility] Address [address] [place] [address] Care Team Providers Care Ip Technology Transactions Attorney Name Role Phone Chelsea Bruno APRN Primary Care Provider Encounter Details Date Type Department Care Team (Late st Contact Info) Description 06/13/2024 Results Follow-Up [facility] [address] [place] [address] Chelsea Bruno APRN [address] [place] [address] Social History Tobacco Use Types [...] Description 03/09/2026 8:15 AM EST Office Visit [facility] [address] [place] [phone] Chelsea Bruno, GREY [address] [place] [address] documented as of this encounter Goals Goal Patient Goal Type Associated Problems Recent Progress Patient-Stated? Author Specialty Pharmacy General Goal General On track(04/04/19 10:35 AM EST) Leighton Houston [facility] Note: Reduce severity and duration of acute migraine headache by 50% documented as of this encounter Visit Diagnoses Not on filedocumented in this encounter Additional Health Concerns Infection Onset Date Last Indicated Resolved Time COVID (rule out) 02/05/2025 02/05/2025 02/05/2025 9:41 AM EST documented as of this encounter Care Teams Ip Technology Transactions Attorney Relationship Specialty Start Date End Date Chelsea Bruno, EDGE BANDER OPERATOR [address] [place] [address] PCP - General Nurse Practitioner 10/18/23 documented as of this encounter
[2025-03-17 07:32] VITALS: BP 113/71; PULSE 75; RESP 16; O2SAT 98
[2025-03-17] MEDS: LACTATED RINGERS 1000ML 1,000 ML 999 ML IV (07:34)
[2025-03-17] MEDS: ONDANSETRON 4MG/2ML VIAL 4 MG IV (07:35)
[2025-03-17 07:39] VITALS: O2SAT 98
[2025-03-17 07:53] LABS: Albumin Level 4.2 g/dl (3.5-5.0); Chloride 105 mmol/L (98-107); HCG Qualitative, Serum Negative (Negative); Potassium 3.5 mmoL/L (3.5-5.1); Sodium 138 mmol/L (136-145)
[2025-03-17 07:55] LABS: Hematocrit 39.4 % (37.0-47.0); Hemoglobin 12.2 g/dL (12.2-16.2); Immature Granulocytes % 0.3 %; Mean Corpuscular HGB Conc 31.0 g/dL (31.8-35.4); Mean Corpuscular Hemoglobin 24.8 pg (27.0-31.2); Mean Corpuscular Volume 80.1 fl (81-99); Nucleated Red Blood Cells % 0 %; Platelet Count 350 K/mm3 (142-424); Red Blood Count 4.92 M/mm3 (4.20-5.40); Red Cell Distribution Width-SD 46.2 fL; White Blood Count 10.5 K/mm3 (4.8-10.8)
[2025-03-17 07:56] LABS: Alanine Aminotransferase 33 U/L (12-78); Albumin/Globulin Ratio 1.2 (1.1-1.8); Alkaline Phosphatase 70 U/L (38-126); Anion Gap 10.5 mEq/L (5-15); Aspartate Amino Transferase 31 U/L (14-36); Bilirubin,Total 0.4 mg/dl (0.2-1.3); Blood Urea Nitrogen 9 mg/dl (7-17); Calcium 9.0 mg/dl (8.4-10.2); Carbon Dioxide 26 mmol/L (22.0-30.0); Creatinine Clearance Estimated 85 mL/min (50-200); Creatinine,Serum 0.90 mg/dl (0.52-1.04); Estimated Glomerular Filt Rate 73 ml/min (>60); GFR (African American) 88 ML/MIN (>60); Globulin 3.5 g/dL (1.3-3.2); Glucose 107 mg/dl (74-100); Lipase 116 U/L (23-300); Total Protein,Serum 7.7 g/dl (6.3-8.2)
[2025-03-17 08:00] VITALS: BP 134/71; PULSE 68; O2SAT 98
[2025-03-17 08:36] VITALS: BP 154/83; PULSE 71; RESP 16; TEMP 36.8; O2SAT 100
== END 2025-03-17 08:40 | disposition home or self-care (01) ==
PROVIDERS: Emergency Provider Student in an Organized Health Care Education/Training Program; PCP Nurse Practitioner Family
DX: R11.2 Nausea with vomiting, unspecified (principal); T50.995A Adverse effect of other drugs, medicaments and biological substances, initial encounter; Z79.899 Other long term (current) drug therapy
CPT/HCPCS: 80053; 83690; 84703; 85025; 96361; 96374; 99285; J2405; J7120